=== PATIENT | female | born 1950 | race African-American/Black ===

== ENCOUNTER 2017-08-08 10:18 | Outpatient (CLI) | payer MEDICARE ==
--- NOTE | 2017-08-08 15:50 | PET ---
PET CT FROM SKULL TO MID THIGH: INDICATION: Right hilar small cell lung cancer. RADIOPHARMACEUTICAL: 11.36 mCi of [id number] IV. TECHNIQUE: PET CT images were obtained from the skull to mid thigh. CT images were obtained for attenuation co rrection purposes only. Comparisons are made with the prior CT chest, abdomen, and pelvis dated 06/06 01/20. FINDINGS: The biodistribution for the examination appears acceptable. HEAD AND NECK: No hypermetabolic head and neck lesion is demonstrated. There is some mild activity seen within the aerodigestive tract which is likely physiologic. CHEST: The hypermetabolic right hilar mass is slightly decreased in prominence measuring approximately 5.2 x 4.4 cm where it previously measured 6 x 5.1 cm. There is improved aeration of the right lower lob e. There is still subsegmental atelectasis within portions of the right lower lobe. The peak uptak e associated with the right hilar mass is 8.21 where the mean uptake is 6.46. There is a hypermetabolic left axillary lymph node peak uptake at 3.47, mean uptake of 1.88. There are additional hypermetabolic lymph nodes seen within the left axillary region. There is a hypermet abolic right paratracheal lymph node with a peak uptake of 3.08 and a mean uptake of 2.64. There is a small calcified granuloma within the left upper lobe. There is some mild volume loss within the right middle lobe. ABDOMEN AND PELVIS: No hypermetabolic mass or lymphadenopathy is evident. There is some mild diffuse hypermetabolic act ivity involving the sigmoid colon with diffuse scattered colonic diverticula. The mean peak uptake is 4.45 with a mean uptake of 3.49 associated with the sigmoid colon. SKIN AND OSSEOUS STRUCTUERS: No skin or osseous hypermetabolic lesion is identified. IMPRESSION: Abnormal PET scan. 1. Hypermetabolic right hilar mass with associated obstructive atelectasis involving the right lowe r lobe and portions of the right middle lobe. The mass does appear less prominent than on the jose rison CT dated 06/16/17 likely reflecting sequelae of response to therapy. 2. Hypermetabolic right paratracheal and left axillary lymph nodes suspicious for malignant spread of disease to the lymph nodes. 3. No evidence of hypermetabolic metastatic disease within the abdomen and pelvis, head and neck re gion, or skin or osseous structures. 4. Hypermetabolic activity involving the sigmoid colon with scattered diverticula suspicious for mi ld sigmoid diverticulitis. Recommend correlation with clinical exam. POS: [facility]
== END 2017-08-08 10:19 | disposition home or self-care (01) ==
LOC: PET 10:18
PROVIDERS: ATTEND Internal Medicine Hematology & Oncology
DX: C34.31 Malignant neoplasm of lower lobe, right bronchus or lung (principal); J98.11 Atelectasis; K57.30 Diverticulosis of large intestine without perforation or abscess without bleeding
CPT/HCPCS: 78815; A9552

== ENCOUNTER 2017-08-20 09:40 | Inpatient (IN) | payer MEDICARE ==
[2017-08-20] MEDS ORDERED: Ondansetron HCl/PF 4 MG/2 ML Vial ONE (10:20)
[2017-08-20 10:36] LABS: #Basophils 0.1 thou/uL (0.0-0.2); #Lymphocytes 2.2 thou/uL (1.20-3.40); #Neutrophils 7.1 thou/uL (1.40-6.50); %Basophils 1.1 % (0.0-1.0); %Eosinophils 0.2 % (0.0-10.0); %Monocytes 9.8 % (0.0-10.0); Hematocrit 44.3 % (36.0-47.0); Mean Platelet Volume 5.9 fL (7.4-10.4); Red Blood Cell (RBC) Count 4.79 mill/uL (4.20-5.40); White Blood Cell (WBC) Count 10.5 thou/uL (4.8-10.8)
[2017-08-20 10:56] LABS: Lactic Acid - Sepsis 1.7 mmol/L (0.5-2.2)
[2017-08-20 11:04] LABS: ALT (SGPT) 20 U/L (8-55); AST (SGOT) 52 U/L (5-34); Alkaline Phosphatase 93 U/L (40-150); Anion Gap 19 mmol/L (10-20); BUN (Urea Nitrogen) 14 mg/dL (9.8-20.1); Bilirubin, Total 0.6 mg/dL (0.2-1.2); Calc. Creatinine Clearance 0 mL/min (70-130); Calcium 9.2 mg/dL (7.8-10.44); Carbon Dioxide 20 mmol/L (23-31); Chloride 94 mmol/L (98-107); Estimated GFR-MDRD Greater than 90; Lipase Less than 4 U/L (8-78); Protein, Total 8.9 g/dL (6.0-8.3)
[2017-08-20] MEDS ORDERED: Sodium Bicarb 50 MEQ/50 ML Abboject 8.4% SYRINGE ONE ×3 (11:18→11:22)
[2017-08-20] MEDS ORDERED: Insulin Regular 300 UNITS/3 ML VIAL ONE (11:18)
[2017-08-20] MEDS ORDERED: Calcium Chloride 1 GM/10 ML Abboject SYRINGE ONE (11:18)
[2017-08-20] MEDS ORDERED: Dextrose 50% Abboject 50 ML SYRINGE ONE ×2 (11:18→11:20)
[2017-08-20 11:26] LABS: Bilirubin Negative (Negative); Blood, Urine Small (Negative); Glucose, Urine (Dipstick) Negative (Negative); Ketone, Urine Negative (Negative); Nitrite Negative (Negative); Protein, Urine (Dipstick) Negative (Neg-Trace); Urobilinogen 0.2 mg/dL (0.2-1.0)
--- NOTE | 2017-08-20 11:28 | RAD ---
SINGLE VIEW OF CHEST: Date: 08/20/17 COMPARISON: 06/17/17. HISTORY: Left upper quadrant abdominal pain. FINDINGS: Single view of the chest shows a normal sized cardiomediastinal silhouette. There is no evidence of consolidation, mass, or pleural effusion. The bones are unremarkable. IMPRESSION: No evidence of acute cardiopulmonary disease. POS: [facility]
[2017-08-20 11:33] LABS: Bacteria/HPF 2+ HPF (None Seen); WBC/HPF 0-3 HPF (0-3)
[2017-08-20 11:34] LABS: Hyaline Casts/LPF NONE SEEN LPF (0-3 Hyaline)
--- NOTE | 2017-08-20 12:49 | CT ---
CT OF THE ABDOMEN AND PELVIS WITH CONTRAST: Date: 08/20/17 COMPARISON: 06/17/17. HISTORY: Left upper quadrant abdominal pain. Patient has lung cancer and receives chemotherapy. TECHNIQUE: Multiple contiguous axial images were obtained in a CT of the abdomen and pelvis with contrast. Anastasiia nal reformats were performed. FINDINGS: There are tiny, subcentimeter, hypodensities in the liver which are too small to definitely characte rize. These could represent small cysts, metastatic lesions, or areas of biliary dilatation. The gallbladder, kidneys, adrenal glands, spleen, and pancreas are unremarkable. No free air, free f luid, or stranding changes are seen in the abdomen or pelvis. There are scattered diverticula in the colon. The small bowel is unremarkable. The reproductive orga ns are unremarkable. No abdominal or pelvic lymphadenopathy seen. Degenerative changes are seen in the spine. The abdomin al wall soft tissues are unremarkable. There is a partially visualized right hilar mass measuring 3.0 cm in size. Collapse of the right low er lobe is seen, but slightly improved compared to the prior exam. IMPRESSION: 1. No evidence of acute intra-abdominal/pelvic abnormality. 2. Nonspecific tiny hypodense lesions in the liver. These could represent cysts, metastatic lesions , or areas of biliary dilatation. 3. Diverticulosis. 4. Right hilar mass with collapse of a portion of the right lower lobe. POS: [facility]
--- NOTE | 2017-08-20 14:36 | PDOC.EVN ---
Event Note - Event Note Event Note: H&P: 586255 Symptomatic Hyponatremia (likely 2/2 SiADH in the setting of lung CA) * 1L fluid restriction * check labs for SIADH * check Na in AM LLQ pain with N/V * CT a/p: no acute issues * likely chemo side-effect * treat symptomatically Lung Ca dx'ed in June 2017 * CT a/p demostrated right hilar mass with RLL collapse; also with hypodense liver lesions (?mets) * consult pulmonology * consult oncology * check blood cxs * check prolactin * check labs in AM Possible UTI * check urine cx DM2 * SSI * f/u accu checks Admit to inpt.
[2017-08-20] MEDS ORDERED: Loperamide HCl 2 MG CAP PO PRN (14:37)
[2017-08-20] MEDS ORDERED: Acetaminophen 325 MG TAB PO PRN (14:37)
[2017-08-20] MEDS ORDERED: Milk Of Magnesia 30 ML UDCUP PO PRN (14:37)
[2017-08-20] MEDS ORDERED: Ondansetron HCl/PF 4 MG/2 ML Vial IVP PRN (14:37)
[2017-08-20] MEDS ORDERED: HYDROcodone/Acetaminophen 5/325 mg Tablet PO PRN (14:37)
[2017-08-20 14:48] VITALS: BMI 26.4
[2017-08-20] MEDS: Nicotine 21 MG PATCH TD SCH (15:38)
--- NOTE | 2017-08-20 19:11 | HP ---
DATE OF ADMISSION: 08/20/2017 at 2:27 p.m. CHIEF COMPLAINT: Left lower quadrant pain. HISTORY OF PRESENT ILLNESS: This is a 66-year-old female who was recently diagnosed with right lowe r lobe lung cancer in 06/2017 and since been receiving chemotherapy, her last series of sessions was this Monday, Monday, and . The following day which was Monday, she noticed the develop ment of her nausea, vomiting, and left lower quadrant pain. She denied any fevers, chills, chest pa in or shortness of breath. She also denied any changes in her urinary habits. REVIEW OF SYSTEMS: A 14-point review of systems is negative except as otherwise indicated above in the HPI. PAST MEDICAL HISTORY: 1. History of TIA which was 6 years ago. 2. Hypertension. 3. Diabetes mellitus. 4. Recently diagnosed right lower lobe lung cancer in 06/2017, status post last chemotherapy sessio n on , 08/17/2017. PAST SURGICAL HISTORY: Appendectomy. FAMILY HISTORY: Reviewed and noncontributory to the presenting illness. SOCIAL HISTORY: The patient does have a history of smoking. She denies any alcohol or illicit drug use. ALLERGIES AND MEDICATIONS: Reviewed and reconciled, please refer to chart for details. PHYSICAL EXAMINATION: VITAL SIGNS: Reviewed, please refer to chart for details. GENERAL: The patient was sitting comfortably in a wheelchair when I entered the room in no acute di stress. HEENT: Normocephalic, atraumatic. NECK: Supple, no rigidity. LYMPH NODES: No cervical or supraclavicular lymphadenopathy. CARDIOVASCULAR: S1 and S2 audible with regular rate and rhythm. LUNGS: Notable for right-sided rhonchi in upper lobes and decreased breath sounds in the bases, rig ht greater than left, no wheezing apparent. ABDOMEN: Soft, nontender, positive bowel sounds. No guarding, rebound or rigidity. GENITOURINARY: No CVA tenderness bilaterally. No suprapubic tenderness either. MUSCULOSKELETAL: No calf tenderness bilaterally. EXTREMITIES: No clubbing, cyanosis or edema of the extremities. PSYCHIATRIC: Appropriate, and cooperative. NEUROLOGIC: Alert and oriented x3, answering questions appropriately with judgment intact. SKIN: Warm, dry with moist mucous membranes. LABORATORY IMAGING: Reviewed. Please refer to chart for details. ASSESSMENT AND PLAN: This is a 66-year-old female presenting with left lower quadrant pain, nausea and vomiting. 1. Symptomatic hyponatremia with left lower quadrant pain. CT of the abdomen and pelvis did reveal hypodense lesions in the liver which is suspicious for metastatic disease. We will consult Oncolog y. Chest x-ray was negative; however, the CT of the abdomen and pelvis did reveal a right hilar mas s with collapse of the portion of the right lower lobe. I will therefore also consult Pulmonology. I do appreciate the input. It does not appear that the patient has an infection at this time, but we will check urine and blood cultures and also check a prolactin level. With regards to the hypona tremia, we will order labs to assess for syndrome of inappropriate antidiuretic hormone secretion in the setting of lung cancer. We will also apply a fluid restriction of 1 liter a day and recheck so dium level in the morning. 2. History of right lower lobe lung cancer diagnosed in 06/2017 per the patient. Last chemotherapy session was , 08/17/2017. Her symptoms of nausea and vomiting may likely be related to her chemotherapy sessions as her symptoms began on Monday, which was the day after her chemo ended. We will treat symptomatically for now and again Oncology has been consulted as above. 3. Probable urinary tract infection. We will check urine culture and hold off on antibiotics for n ow. 4. Diabetes mellitus, start sliding scale insulin. Follow up Accu-Cheks before meals and at bedtim e. Admit to inpatient.
[2017-08-20] MEDS: Famotidine/PF 20 mg/2ml Vial SLOW IVP SCH (20:02)
[2017-08-20] MEDS ORDERED: Calcium Carbonate 500 MG ChewTAB PO PRN (20:23)
[2017-08-20] MEDS ORDERED: Mag-Al 1200 mg/1200 mg/30 ML UDCUP PO PRN (20:23)
[2017-08-20] MEDS: Zolpidem Tartrate 5 MG TAB PO PRN (20:27)
[2017-08-20] MEDS ORDERED: FLU VACC TS2017-18 (>65YR) 0.5 ML SYRINGE IM ONE (21:00)
[2017-08-21 05:52] LABS: #Basophils 0.1 thou/uL (0.0-0.2); #Lymphocytes 2.5 thou/uL (1.20-3.40); #Monocytes 0.9 thou/uL (0.11-0.59); #Neutrophils 4.5 thou/uL (1.40-6.50); %Basophils 0.7 % (0.0-1.0); %Eosinophils 0.4 % (0.0-10.0); %Lymphocytes 31.5 % (21.0-51.0); %Monocytes 11.1 % (0.0-10.0); Hematocrit 47.1 % (36.0-47.0); Red Blood Cell (RBC) Count 5.09 mill/uL (4.20-5.40)
[2017-08-21 06:20] LABS: Anion Gap 12 mmol/L (10-20); BUN (Urea Nitrogen) 16 mg/dL (9.8-20.1); Calc. Creatinine Clearance 98 mL/min (70-130); Calcium 9.4 mg/dL (7.8-10.44); Carbon Dioxide 25 mmol/L (23-31); Chloride 99 mmol/L (98-107); Estimated GFR-MDRD Greater than 90; Magnesium 2.2 mg/dL (1.6-2.6)
[2017-08-21] MEDS: Famotidine/PF 20 mg/2ml Vial SLOW IVP SCH (08:32)
[2017-08-21] MEDS: Nicotine 21 MG PATCH TD SCH (08:37)
--- NOTE | 2017-08-21 11:46 | PDOC.PN ---
- Subjective Encounter Start Date: 08/21/17 Encounter Start Time: 08:00 -: old records requested/rev Patient seen and examined. No new complaints. No overnight events - Objective MAR Reviewed: Yes Vital Signs & Weight: Vital Signs (12 hours) Temp Pulse Resp BP BP Pulse Ox 08/21/17 11:14 97.9 F 89 16 93/60 99 08/21/17 08:00 98.3 F 79 16 99 08/21/17 07:15 98.3 F 79 16 124/76 99 08/21/17 04:00 98.3 F 73 18 99/65 95 Weight Weight 158 lb 11.725 oz I&O: 08/20/17 08/21/17 08/22/17 06:59 06:59 06:59 Intake Total 240 Balance 240 Result Diagrams: 08/21/17 04:51 08/21/17 04:51 Phys Exam - Physical Examination Constitutional: NAD HEENT: PERRLA, moist MMs, sclera anicteric Neck: no JVD, supple Respiratory: no wheezing, no rales, no rhonchi Cardiovascular: RRR, no significant murmur, no rub Gastrointestinal: soft, non-tender, no distention, positive bowel sounds Musculoskeletal: no edema, pulses present Neurological: non-focal, normal sensation, moves all 4 limbs Psychiatric: normal affect, A&O x 3 Skin: no rash, normal turgor Dx/Plan (1) Hyponatremia Code(s): E87.1 - HYPO-OSMOLALITY AND HYPONATREMIA Status: Acute Comment: likely due to siadh (2) Diverticulosis Code(s): K57.90 - DVRTCLOS OF INTEST, PART UNSP, W/O PERF OR ABSCESS W/O BLEED Status: Chronic (3) Small cell lung cancer Code(s): C34.90 - MALIGNANT NEOPLASM OF UNSP PART OF UNSP BRONCHUS OR LUNG Status: Chronic (4) Tobacco abuse Code(s): Z72.0 - TOBACCO USE Status: Chronic - Plan cont current plan of care * sodium is improving * she is due for mediport on monday * advised free water restriction * medication reviewed as below * symptomatic treatment. Review of Systems - Review of Systems ENT: negative: Ear Pain, Ear Discharge, Nose Pain, Nose Discharge, Nose Congestion, Mouth Pain, Mouth Swelling, Throat Pain, Throat Swelling, Other Respiratory: negative: Cough, Dry, Shortness of Breath, Hemoptysis, SOB with Excertion, Pleuritic Pain, Sputum, Wheezing Cardiovascular: negative: Chest Pain, Palpitations, Orthopnea, Paroxysmal Noc. Dyspnea, Edema, Light Headedness, Other Gastrointestinal: negative: Nausea, Vomiting, Abdominal Pain, Diarrhea, Constipation, Melena, Hematochezia, Other Genitourinary: negative: Dysuria, Frequency, Incontinence, Hematuria, Retention , Other Musculoskeletal: negative: Neck Pain, Shoulder Pain, Arm Pain, Back Pain, Hand Pain, Leg Pain, Foot Pain, Other Skin: negative: Rash, Lesions, Driss, Bruising, Other - Medications/Allergies Allergies/Adverse Reactions: Allergies Allergy/AdvReac Type Severity Reaction Status Date / Time No Known Drug Allergies Allergy Verified 06/17/17 16:44 Medications: Current Medications Acetaminophen (Tylenol) 650 mg PO Q4H PRN PRN Reason: Headache/Fever or Pain Hydrocodone Bitart/Acetaminophen ([place] 5/325) 1 tab PO Q4H PRN PRN Reason: Moderate Pain (4-6) Al Hydroxide/Mg Hydroxide (Maalox) 20 ml PO Q6H PRN PRN Reason: INDIGESTION Calcium Carbonate (Tums) 1,000 mg PO Q4H PRN PRN Reason: INDIGESTION Famotidine (Pepcid) 20 mg SLOW IVP Q12HR [facility] Last Admin: 08/21/17 08:32 Dose: 20 mg Lactulose (Lactulose) 20 gm PO DAILYPRN PRN PRN Reason: Constipation Loperamide HCl (Imodium) 2 mg PO PRN PRN PRN Reason: Diarrhea/Loose Stools Magnesium Hydroxide (Milk Of Magnesium) 30 ml PO DAILYPRN PRN PRN Reason: Constipation Nicotine (Nicoderm Patch) 21 mg TD Q24HR [facility] Last Admin: 08/21/17 08:37 Dose: 21 mg Ondansetron HCl (Zofran) 4 mg IVP Q6H PRN PRN Reason: Nausea/Vomiting Last Admin: 08/20/17 16:44 Dose: 4 mg Zolpidem Tartrate (Ambien) 5 mg PO HSPRN PRN PRN Reason: Insomnia Last Admin: 08/20/17 20:27 Dose: 5 mg
--- NOTE | 2017-08-21 14:31 | CON ---
DATE OF CONSULTATION: 08/21/2017 REASON FOR CONSULTATION: Lung cancer. HISTORY OF PRESENT ILLNESS: Ms. Lozada is a 66-year-old female who was recently diagnosed with small cell carcinoma of the lung. She has a right hilar malignancy with left axillary metastasis. She h as a history of smoking 1-2 packs per day for over 40 years. She recently completed her second cycl e of carboplatin and [employer]-16 on 08/17/2017. On 08/20/2017, she presented to the emergency ro om with complaints of abdominal pain, burning in her chest. She was having some diarrhea. Chemistr y revealed hyponatremia, so she was admitted for treatment. She had a CT scan of the abdomen and pe lvis which showed nonspecific hypodense lesions. Her PET scan dated 08/08/2017 showed no increased uptake in the liver, so these are likely cysts. Over the course of the last 24 hours, she has impro suleman and denies any chest pain or shortness of breath. She has had a good bowel movement. Denies an y heartburn or abdominal pain. She is up and ambulating in the room and just completed her lunch. PAST MEDICAL HISTORY: 1. Metastatic small cell carcinoma. 2. Tobacco abuse. 3. High blood pressure. 4. High cholesterol. 5. History of stroke. 6. Blood clots. PAST SURGICAL HISTORY: Appendectomy. ALLERGIES: No known drug allergies. HOME MEDICATIONS: 1. Ambien 5 mg p.r.n. at bedtime. 2. Nicotine patch. 3. Compazine and Zofran p.r.n. FAMILY HISTORY: She had a sibling with lung with brain mets. SOCIAL HISTORY: , has 2 children. Quit smoking at diagnosis. No alcohol or illicit drug u se. REVIEW OF SYSTEMS: Twelve-point review of systems is negative except for noted on HPI. PHYSICAL EXAMINATION: VITAL SIGNS: Temperature is 97.9, pulse is 89, respiratory rate 16, BP is 93/60. She is 99% on robb m air. GENERAL: Well-developed, well-nourished female in no acute distress. HEENT: Normocephalic, atraumatic. Pupils equal and reactive to light. NECK: Supple. CARDIOVASCULAR: Regular rate and rhythm. LUNGS: Clear. ABDOMEN: Soft, nontender, bowel sounds are positive. EXTREMITIES: No clubbing, cyanosis or edema. SKIN: No rash. HEMATOLOGIC: No petechia or purpura. NEUROLOGIC: Nonfocal. PSYCHIATRIC: The patient is alert and oriented and answers appropriately. PERTINENT LABORATORY DATA AND X-RAYS: Current WBCs are 8.0, hemoglobin 15.7, hematocrit 47.1, plate let count 536,000, 56% neutrophils, 31% lymphocytes. Sodium is 132, potassium 4.4, chloride 99, CO2 is 25, BUN is 16, creatinine 0.64. Lactic acid 1.7, calcium 9.4, magnesium 2.2, total bilirubin is 0.6, AST is 52, ALT is 20, alkaline phosphatase is 93. Serum total protein is 8.9, albumin 3.9, gl obulin 5. Urine showed 2+ bacteria. Urine culture is negative. Radiology per HPI. ASSESSMENT PLAN: 1. Metastatic small cell carcinoma, on chemotherapy. 2. Left upper quadrant abdominal pain, which has resolved. DISCUSSION: The patient denies any complaints at this time. She is taking p.o. and has had a bowel movement. She has a MediPort scheduled for Monday as an outpatient and has a followup appointme nt with Dr. Cyr on Monday afternoon. No further inpatient recommendations at this time.
[2017-08-21] MEDS: Famotidine 20 MG TAB PO SCH (20:47)
[2017-08-21] MEDS: Zolpidem Tartrate 5 MG TAB PO PRN (20:47)
--- NOTE | 2017-08-21 20:57 | PRG ---
DATE OF SERVICE: 08/21/2017 SUBJECTIVE: A 66-year-old female with metastatic lung cancer. She has seen Dr. Lo, but not re cently. She was followed by Dr. Cyr. She was admitted to the hospital apparently with symptoms of vague epigastric discomfort and abdomin al pain. She said she has not had a bowel movement for several days. She was found to have a sodium of 124; sodium today is 132. She is feeling much better after she had a bowel movement. No fever, chills, no sweats. PAST MEDICAL HISTORY: TIA. PAST SURGICAL HISTORY: Appendix, bronchoscopy. CURRENT MEDICATIONS: Nicotine, lactulose, Flagyl. REVIEW OF SYSTEMS: Otherwise, unremarkable. PHYSICAL EXAMINATION: VITAL SIGNS: Blood pressure 93/60, sats 99%, respiration 16. CHEST: Reveals decreased breath sounds without any wheezing. CARDIAC: Normal S1, S2. No gallops. ABDOMEN: Soft. No masses. LABORATORY DATA: White count 8000, H and H 15 and 47, platelet count is normal. Electrolytes are n ormal. Sodium was up to 132. Cortisol is 20. TSH is 1.42. IMPRESSION: 1. Hyponatremia. Pretty much resolved. Sodium is 132. 2. Abdominal pain, probably secondary to constipation. 3. Metastatic small cell cancer, on chemotherapy. PLAN: At this stage, she probably could be discharged home tomorrow, followed by Dr. Lo on an outpatient basis.
[2017-08-22 05:40] LABS: #Lymphocytes 2.4 thou/uL (1.20-3.40); #Monocytes 0.8 thou/uL (0.11-0.59); #Neutrophils 3.9 thou/uL (1.40-6.50); %Basophils 0.6 % (0.0-1.0); %Eosinophils 0.4 % (0.0-10.0); %Lymphocytes 33.8 % (21.0-51.0); %Monocytes 11.3 % (0.0-10.0); Hematocrit 45.2 % (36.0-47.0); Mean Platelet Volume 6.1 fL (7.4-10.4); White Blood Cell (WBC) Count 7.2 thou/uL (4.8-10.8)
[2017-08-22 05:52] LABS: Anion Gap 13 mmol/L (10-20); BUN (Urea Nitrogen) 21 mg/dL (9.8-20.1); Calc. Creatinine Clearance 100 mL/min (70-130); Calcium 8.7 mg/dL (7.8-10.44); Carbon Dioxide 21 mmol/L (23-31); Chloride 103 mmol/L (98-107); Estimated GFR-MDRD Greater than 90; Magnesium 2.2 mg/dL (1.6-2.6)
[2017-08-22 09:20] VITALS: BP 106/74; TEMP 97.6
[2017-08-22] MEDS: Famotidine 20 MG TAB PO SCH (09:49)
[2017-08-22] MEDS: Nicotine 21 MG PATCH TD SCH (09:50)
--- NOTE | 2017-08-22 10:30 | DIS ---
DATE OF ADMISSION: 08/20/2017 DATE OF DISCHARGE: 08/22/2017 PRIMARY CARE PHYSICIAN: [facility]. DISCHARGE DISPOSITION: Home. PRIMARY DISCHARGE DIAGNOSIS: Hyponatremia. SECONDARY DISCHARGE DIAGNOSES: Diverticulosis, small cell lung cancer, tobacco abuse disorder, and gastroesophageal reflux disease. PRIMARY PROCEDURE/OPERATION: None. RADIOLOGICAL INVESTIGATION: Abdomen and pelvis CT scan was unremarkable. Chest x-ray with no new a cute finding. SIGNIFICANT LABORATORY DATA: CBC: WBC 7.2, hemoglobin 14.8, platelets 450. Sodium 132, potassium 4.5, BUN 21, and creatinine 0.63. Cortisol of 20.5. Prolactin 4.83, TSH 1.42, AST 52, ALT 20, and alkaline phosphatase 93. Urinalysis unremarkable. Blood culture and urine culture negative. DISCHARGE MEDICATIONS: Pepcid 20 mg p.o. b.i.d., lactulose 20 grams p.o. daily p.r.n. for constipat ion. CONTRAINDICATIONS: None. CODE STATUS: FULL CODE. INPATIENT CONSULTANTS: Dr. Cristopher Hammond was consulted while in hospital. Dr. Arturo Banda was consult ed while in hospital. TEST RESULTS PENDING ON DISCHARGE: None. ALLERGIES: No known drug allergy. DISCHARGE PLAN: Post hospital, the patient will follow up with Oncology Clinic. HOSPITAL COURSE: A 66-year-old female who was admitted by Dr. Charles Salas. Please see his H\T\P for further details. The patient was admitted for hyponatremia. We did hyponatremia workup in hosp ital and we found that she has small cell lung cancer and that is why most likely her hyponatremia i s related with SIADH. We gave her IV fluid trial and we also restricted free water intake. Patient has also poor p.o. intake and that is why we advised about high protein diet. During this admissio n, her sodium improved from 124-132. The patient is doing very well. The patient is planned for to [place] MediPort placement. Patient also has appointment with Oncology Clinic for chemotherapy decis ion. This patient was also drinking free water at home too much and that is why we provided necessary pat ient education about fluid restriction. The patient is seen and examined at bedside today. PHYSICAL EXAMINATION: VITAL SIGNS: Currently, temperature 97.6, pulse 81, respiratory rate 16, saturation 95%, blood pres sure 106/74. Weight 158 pounds. GENERAL: The patient is alert, awake, no acute distress. HEAD: Normocephalic, atraumatic. LUNGS: Clear. CARDIAC: S1 and S2 regular without any murmur. ABDOMEN: Soft and benign. EXTREMITIES: No edema. NEUROLOGIC: Nonfocal examination. The patient is medically stable for discharge today.
== END 2017-08-22 11:58 | disposition home or self-care (01) | DRG 644 ==
LOC: ERS 09:40 → T4-A 13:12
PROVIDERS: ADMIT Hospitalist; ATTEND Hospitalist
DX: E22.2 Syndrome of inappropriate secretion of antidiuretic hormone (principal); C77.3 Secondary and unspecified malignant neoplasm of axilla and upper limb lymph nodes; C34.01 Malignant neoplasm of right main bronchus; K57.90 Diverticulosis of intestine, part unspecified, without perforation or abscess without bleeding; K59.00 Constipation, unspecified; Z87.891 Personal history of nicotine dependence; I10 Essential (primary) hypertension; E11.9 Type 2 diabetes mellitus without complications; Z23 Encounter for immunization
CPT/HCPCS: 36415; 71010; 74177; 80048; 80053; 81003; 81015; 82533; 82570; 83605; 83690; 83735; 83930; 83935; 84146; 84300; 84443; 85025; 87040; 87086; 93005; 96361; 96374; 96375; G8978-GP-CK; G8979-GP-CK; G8980-GP-CK; G8987-GO-CH; G8988-GO-CH; G8989-GO-CH; J1815; J2405; S0028

== ENCOUNTER 2017-08-29 05:56 | Day surgery (SDC) | payer MEDICARE ==
[2017-08-28 16:29] VITALS: BMI 24.7
[2017-08-29] MEDS ORDERED: CEFAZOLIN/Water 2 GM/20 ML SYRINGE ONE (06:50)
[2017-08-29] MEDS ORDERED: Bupivacaine 0.25% HCL 30 ML VIAL ONE (06:56)
[2017-08-29] MEDS ORDERED: Lidocaine 2% w/Epinephrine 1:200K 20 ML VIAL ONE (06:56)
[2017-08-29] MEDS ORDERED: Fentanyl 100 MCG/2 ML VIAL ONE (07:16)
[2017-08-29] MEDS ORDERED: Diprivan 20 ML ONE (07:16)
[2017-08-29] MEDS ORDERED: Midazolam HCl 2 mg/2 ml Vial ONE (07:16)
[2017-08-29] MEDS ORDERED: Ondansetron HCl/PF 4 MG/2 ML Vial ONE (07:43)
[2017-08-29] MEDS ORDERED: Lidocaine 1% PF 5 ML VIAL ONE (07:43)
--- NOTE | 2017-08-29 08:55 | OP ---
PREOPERATIVE DIAGNOSIS: Lung cancer. POSTOPERATIVE DIAGNOSIS: Lung cancer. PROCEDURE: Tunneled central line subcutaneous port (MediPort), CT injectable. SURGEON: Kyle Bui M.D. ANESTHESIA: TIVA, local. ESTIMATED BLOOD LOSS: Minimal. COMPLICATIONS: None. FINDINGS: Tip of the catheter was at the atriocaval junction. TECHNIQUE: The patient was taken to the operating room and placed supine on the table. After sedat ion was obtained, bilateral neck and chest were prepped and draped in a sterile fashion. Local anes thetic infiltrated over the right internal jugular vein. Internal jugular vein was cannulated using a 22-gauge finder needle followed by a Seldinger needle and a wire was passed into the superior kelsy a cava under fluoroscopic guidance. A separate 4 cm incision was made in the right upper chest and the subcutaneous pocket made below the lower incision. Tubing for the MediPort tunneled from the in ferior to the superior incision. Introducer sheath was placed over the wire under fluoroscopic guid ance introduced. The dilator and wire are removed. The end of the catheter was threaded into the s taco as the sheath is peeled away. The tip of catheter is at the atriocaval junction. MediPort tu german cut to fit the MediPort at the lower incision, connected to the MediPort which was sewn to the chest wall in the subcutaneous pocket using Prolene. The MediPort flushes and draws blood without d ifficulty. It is flushed with heparin flush. The wounds were irrigated and closed using 3-0 Monocr yl, 4-0 Monocryl, and Dermabond. The patient was en route to recovery in stable condition. All ins trument counts, needle counts, and lap counts were correct.
--- NOTE | 2017-08-29 09:04 | RAD ---
AP CHEST: Indication: Status post Mediport placement. Comparison: 08-20-17 IMPRESSION: There is a new right IJ chest wall port in place. The tip of the catheter is seen in the cavoatrial junction. No pneumothorax is evident. The remainder of the examination is unchanged from the compari son. POS: [facility]
== END 2017-08-29 09:30 | disposition home or self-care (01) ==
LOC: SDC 05:56
PROVIDERS: ATTEND Surgery
PROC: 05HM33Z Insertion of Infusion Device into Right Internal Jugular Vein, Percutaneous Approach (ICD-10-PCS; principal; 2017-08-29)
DX: C34.90 Malignant neoplasm of unspecified part of unspecified bronchus or lung (principal); J45.909 Unspecified asthma, uncomplicated; F17.200 Nicotine dependence, unspecified, uncomplicated; Z90.49 Acquired absence of other specified parts of digestive tract; Z98.890 Other specified postprocedural states
CPT/HCPCS: 36561; 71010; C1788; J1642; J2001; J2250; J2405; J2704; J3010; S0020

== ENCOUNTER 2017-10-16 09:04 | Outpatient (CLI) | payer MEDICARE ==
--- NOTE | 2017-10-16 13:05 | CT ---
CT CHEST AND ABDOMEN AND PELVIS WITH IV CONTRAST: Date: 10/16/17 Multiple axial tomograms obtained through chest, abdomen, and pelvis with IV enhancement. Oral contra st was administered. HISTORY: Malignant neoplasm of the right lung. Follow-up. Post chemo. Comparison made to abdominopelvic CT of 08/20/[address] of 06/18/17. FINDINGS: CT CHEST: There has been significant improvement in the right lung mass when compared to the 06/18/17 exam. The residual right hilar mass today measures approximately 2.6 cm AP dimension. This also is slightly sm aller when compared to the images through the mid and lower chest on 08/20/17. Images through the low er chest on 08/20/17 revealed a significant mass density extending into the right lower lobe from the right infrahilar region. This mass is significantly decreased in size today with some residual right infrahilar mass today measuring 2.1 cm. Previous measurements of this right infrahilar mass on 08/20 recorded at approximately 4.0 cm. There continues to be some mild posterior right lower lobe atel ectatic change. On the 06/18/17 exam, an enlarged left axillary lymph node was noted measuring up to 2.6 cm. That lym ph node has significantly regressed in size today with residual node in this region subcentimeter. Prior exam also described several left subpectoral lymph nodes along the anterior left chest wall. Th sam subpectoral lymph nodes have also regressed. There are 2-3 subcentimeter subpectoral lymph nodes on the left seen today. IMPRESSION: 1. Significant regression of the right hilar mass and right infrahilar mass when compared to prior e xam. There has also been regression of the left axillary adenopathy and left subpectoral adenopathy w hen compared to prior exam. 2. Some residual right lung base atelectasis. CT ABDOMEN AND PELVIS: Liver, spleen, and pancreas appear unremarkable. Adrenal glands and kidneys remain unremarkable. Tiny renal cystic lesions are stable. Bowel loops unremarkable. Diverticulosis of left colon again noted. Uterus and adnexa unremarkable. Bladder is mildly distended. No adenopathy. No acute interval change . Nonspecific periaortic lymph nodes are stable. IMPRESSION: Stable CT abdomen and pelvis with no evidence of intra-abdominal adenopathy identified. POS: [facility]
[2017-10-16] MEDS ORDERED: ISOVUE-370 76%-LOCM 1 ML ONE (17:19)
== END 2017-10-16 09:05 | disposition home or self-care (01) ==
LOC: CT 09:04
PROVIDERS: ATTEND Internal Medicine Hematology & Oncology
DX: C34.31 Malignant neoplasm of lower lobe, right bronchus or lung (principal); R59.0 Localized enlarged lymph nodes; R91.8 Other nonspecific abnormal finding of lung field; J98.11 Atelectasis
CPT/HCPCS: 71260; 74177

== ENCOUNTER 2017-11-15 11:12 | Outpatient (CLI) | payer MEDICARE ==
[2017-11-15 12:16] LABS: Estimated GFR-MDRD - POC Greater than 90
--- NOTE | 2017-11-15 14:51 | MRI ---
BRAIN MRI WITH AND WITHOUT CONTRAST: INDICATION: History of small-cell lung malignancy. Evaluate for brain metastases. COMPARISON: Reference is made to 07/24/[address] FINDINGS: There is extensive white matter signal alteration without acute territorial infarction, mass effect, or midline shift. There is mild pontine gliosis. The ventricular system is normal in size. No evid ence of intracranial hemorrhage. No pathologic intraaxial enhancement. The skull base flow voids ar e maintained. There is mild mucosal thickening within the paranasal sinuses. Evidence of remote lac unar infarctions within the bilateral cerebellar hemispheres. IMPRESSION: 1. No intracranial metastatic disease. 2. Findings most consistent with mild to moderate chronic microvascular ischemic disease. 3. 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 POS: [facility]
[2017-11-15] MEDS ORDERED: Gadobenate Dimeglumine 529 MG/1 ML (20ML VIAL) ONE (16:49)
== END 2017-11-15 11:13 | disposition home or self-care (01) ==
LOC: MRI 11:12
PROVIDERS: ATTEND Radiology Radiation Oncology
DX: C34.31 Malignant neoplasm of lower lobe, right bronchus or lung (principal)
CPT/HCPCS: 70553; A9579

== ENCOUNTER 2018-02-01 09:34 | Outpatient (CLI) | payer MEDICARE ==
--- NOTE | 2018-02-01 12:29 | CT ---
CT CHEST WITH CONTRAST CT ABDOMEN WITH CONTRAST CT PELVIS WITH CONTRAST: Date: 02/01/18 HISTORY: C34.41, malignant neoplasm of lower lobe. COMPARISON: CT chest, abdomen, and pelvis dated 10/16/17. FINDINGS: The right perihilar mass is decreased in volume. Using the same imaging plans as prior examination, t he greatest AP dimension is approximately 2.0 cm, previously 2.6 cm. The postobstructive pneumonitis in the right lower lobe is improved. No new suspicious pulmonary nodules. No pneumothorax. No large effusion. Left axillary and retropectoral lymph nodes are markedly worsened from the comparison examination. Le ft retropectoral lymph node measures up to 1.7 cm, previously 7.0 mm in short axis. Enlarging left ax illary lymph nodes measure up to 1.6 cm, previously not even visualized. There is central hypodensity within the lymph node suggesting necrosis. Left supraclavicular adenopathy is present, measuring up to 1.7 cm. No significant right supraclavicular adenopathy. No hypodensities in left lobe of thyroid. No pericardial effusion. No right-sided axillary or retropectoral lymph nodes. Central venous catheter in good position. Evaluation of the abdomen is limited due to motion. There is a small hypodensity in hepatic segment 8 measuring approximately 3.0 mm, unchanged, likely a cyst. Gallbladder is unremarkable. The spleen and pancreas are unremarkable, as well as are the adrenal glands. The aortic contour is nonaneurysmal. Extensive diverticular disease of the sigmoid colon without active current inflammation. There is mild diastasis recti. No retroperitoneal adenopathy. No dilated loops of large or small bowel. 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 No displaced fracture. No suspicious osteolytic or osteoblastic lesion. Mild narrowing of the pubic symphysis with erosions. IMPRESSION: 1. Continued interval size decrease of the right perihilar mass, now measuring up to 2.0 cm in AP di mension using the same imaging plane as the 10/16/17 examination, previously 2.6 cm. 2. Marked interval worsening with new and enlarged left retropectoral and axillary lymph nodes. The largest retropectoral lymph nodes measures 1.7 cm and largest axillary lymph node measures up to 1.6 cm short axis. There is also new left supraclavicular adenopathy measuring up to 1.7 cm. These retrop ectoral subclavicular and axillary lymph nodes have central hypodensity, suggesting internal necrosis . 3. Hypodensities of the thyroid. Nonemergent ultrasound may be beneficial. POS: [facility]
== END 2018-02-01 09:35 | disposition home or self-care (01) ==
LOC: SCSCT 09:34
PROVIDERS: ATTEND Internal Medicine Hematology & Oncology
DX: C34.31 Malignant neoplasm of lower lobe, right bronchus or lung (principal); E07.9 Disorder of thyroid, unspecified
CPT/HCPCS: 71260; 74177; 82565

== ENCOUNTER 2018-03-07 10:25 | Emergency (ER) | payer MEDICARE ==
[2018-03-07 11:28] LABS: #Eosinphils 0.1 thou/uL (0.0-0.7); #Lymphocytes 0.7 thou/uL (1.20-3.40); #Monocytes 0.8 thou/uL (0.11-0.59); #Neutrophils 4.3 thou/uL (1.40-6.50); %Basophils 0.5 % (0.0-1.0); %Lymphocytes 11.5 % (21.0-51.0); %Monocytes 12.9 % (0.0-10.0); Hemoglobin 15.5 g/dL (12.0-16.0); Mean Corpuscular Hemoglobin 31.1 pg (27.0-31.0); Mean Corpuscular Volume 91.3 fl (81.0-99.0); Mean Platelet Volume 7.1 fL (7.4-10.4); Platelet Count 252 thou/uL (130-400); RBC Distribution Width 12.3 % (11.5-14.5); White Blood Cell (WBC) Count 5.9 thou/uL (4.8-10.8)
[2018-03-07] MEDS ORDERED: ISOVUE-370 76%-LOCM 1 ML ONE (11:57)
[2018-03-07 12:03] LABS: ALT (SGPT) 14 U/L (8-55); AST (SGOT) 24 U/L (5-34); Albumin 4.1 g/dL (3.4-4.8); Alkaline Phosphatase 88 U/L (40-150); Anion Gap 12 mmol/L (10-20); BUN (Urea Nitrogen) 10 mg/dL (9.8-20.1); Bilirubin, Total 0.7 mg/dL (0.2-1.2); Calc. Creatinine Clearance 0 mL/min (70-130); Calcium 9.4 mg/dL (7.8-10.44); Carbon Dioxide 21 mmol/L (23-31); Chloride 99 mmol/L (98-107); Estimated GFR-MDRD Greater than 90; Globulin 3.7 g/dL (2.4-3.5); Glucose 97 mg/dL (80-115); Lipase 15 U/L (8-78); Potassium 4.4 mmol/L (3.5-5.1); Protein, Total 7.8 g/dL (6.0-8.3); Sodium 128 mmol/L (136-145)
[2018-03-07 12:45] LABS: Bilirubin Negative (Negative); Blood, Urine Moderate (Negative); Clarity CLEAR (Clear); Glucose, Urine (Dipstick) Negative (Negative); Leukocyte Negative (Negative); Nitrite Negative (Negative); Protein, Urine (Dipstick) Negative (Neg-Trace); Specific Gravity, Urine 1.009 (1.002-1.036); pH, Urine 6.5 (5.0-9.0)
[2018-03-07 12:55] LABS: Bacteria/HPF 1+ HPF (None Seen); Hyaline Casts/LPF 4-6 HYALINE CAST LPF (0-3 Hyaline); Pathc Cast-AUWi Flag 1.74 (0-2.49); WBC/HPF 0-3 HPF (0-3)
--- NOTE | 2018-03-07 14:15 | CT ---
CT ABDOMEN AND PELVIS WITH CONTRAST: Technique: Multiple axial tomograms were obtained through the abdomen and pelvis with IV enhancement. Indications: Abdominal pain with nausea and vomiting, diarrhea. History of lung cancer with recent co mpletion of chemo and radiation. Comparison: CT abdomen/pelvis dated 02-01-18. FINDINGS: Images through the lung bases reveal calcified right hilar lymph node and soft tissue density of the right hilum which has been previously noted. There is hazy alveolar opacity in the posterior right lung base which could represent infiltrate or a telectasis. The liver, spleen, and pancreas appear unremarkable. Stomach and duodenum are unremarkable. Pancreas is unremarkable. Adrenal glands appear normal. Kidneys are unremarkable. No hydronephrosis. There are vascular calcifi cations in the renal arteries. No definite renal calculus identified. Urinary bladder is unremarkable . Small bowel loops appear normal. There is diverticulosis involving the left colon and sigmoid. No definite evidence of diverticulitis. The uterus and adnexa appear unremarkable. Aorta is normal caliber with atherosclerotic calcification . No adenopathy identified. IMPRESSION: 1. Extensive diverticulosis in the left colon and sigmoid. No CT evidence of diverticulitis. 2. No acute process identified. POS: [facility]
== END 2018-03-07 13:39 | disposition home or self-care (01) ==
LOC: ERS 10:25
DX: R10.12 Left upper quadrant pain (principal); R11.10 Vomiting, unspecified; Z87.891 Personal history of nicotine dependence; Z85.118 Personal history of other malignant neoplasm of bronchus and lung
CPT/HCPCS: 74177; 80053; 81003; 81015; 83690; 85025; 93005; 96360; 96361

== ENCOUNTER 2018-05-11 08:59 | Outpatient (CLI) | payer MEDICARE ==
[2018-05-11 09:38] LABS: Estimated GFR-MDRD - POC Greater than 90
--- NOTE | 2018-05-12 10:33 | CT ---
CHEST CT WITH CONTRAST ABDOMEN CT WITH CONTRAST: HISTORY: Malignant neoplasm of the right lower lobe. TECHNIQUE: A chest and abdomen CT are performed with IV contrast. Enteric contrast is also administered. Coron al reformatted images are submitted for interpretation. FINDINGS: CHEST CT: No mediastinal mass, lymphadenopathy, or hematoma. Heart size is normal. No pericardial effusion. There are coronary calcifications. Atherosclerosis of the aorta is noted. No aneurysmal, dissection , or periaortic fat stranding. Redemonstration of right hilar mass with associated calcification. Currently, this mass measures 2.3 cm anterior posterior x 2.3 cm mediolateral x 3.1 cm craniocaudal. There are adjacent lung parenchy mal changes which may represent postobstructive atelectasis or extension of tumor. These changes are similar to the previous exam. Additional ground-glass and alveolar opacities are noted. The degree of opacification has slightly progressed when compared to the previous examination. A possible infi ltrate or extension of tumor are differential considerations. There is stable aeration of the left l rola. Trachea and central bronchi are patent. Previously noted left axillary lymph nodes have significantly reduced in size. There is a single lef t axillary lymph node currently measuring 1.6 x 0.5 cm. This lymph node previously measured 3.4 x 1. [address]: Stable enhancement of the solid organs. No intraabdominal mass, lymphadenopathy, free air, or free f luid. No evidence of bowel obstruction. Diverticulosis, without evidence of diverticulitis is noted . Symmetric enhancement of the kidneys. No obstructive uropathy. There are no lytic or blastic lesions in the osseous structures. IMPRESSION: 1. Improved left-sided axillary lymph nodes. Single residual lymph node does remain. 2. Redemonstration of right hilar mass without any significant change. Currently, the mass measures 2.3 x 2.3 cm (previously measuring 2.3 x 2.4 cm). 3. Interval alveolar opacities in the posterior aspect of the superior segment of the right lower lo be. Focal infiltrate is suspected. Extension of tumor cannot be completely excluded. Additional li near opacities of the right lung parenchyma are noted and stable. POS: [facility]
== END 2018-05-11 09:00 | disposition home or self-care (01) ==
LOC: SCSCT 08:59
PROVIDERS: ATTEND Internal Medicine Hematology & Oncology
DX: C34.31 Malignant neoplasm of lower lobe, right bronchus or lung (principal); R91.8 Other nonspecific abnormal finding of lung field
CPT/HCPCS: 71260; 74177; 82565

== ENCOUNTER 2018-11-01 08:32 | Outpatient (CLI) | payer MEDICARE ==
[2018-11-01 09:55] LABS: Estimated GFR-MDRD - POC Greater than 90
--- NOTE | 2018-11-01 12:06 | CT ---
CT CHEST WITH IV CONTRAST CT ABDOMEN WITH IV AND ORAL CONTRAST: History: Lung cancer. Restaging. Comparison: 05-11-18 and multiple previous exams back to 08-20-17. FINDINGS: At the right infrahilar level right lower lobe, dystrophic calcification is present. The remaining so ft tissue density mass is now 2.2 cm length x 2.0 cm depth x 1.7 cm width where it was previously 3.1 cm x 2.3 cm x 2.3 cm. Parenchymal opacification of the medial aspect of the right lung is consistent with a radiation port with some fibrosis. No new lung masses or mediastinal adenopathy are evident. At the left axilla, the previously detailed lymph node is less than 1 cm greatest diameter. Within the partially visualized upper abdomen, tiny cystic lesions within the liver are stable. A new lobular 1.5 cm low density mass arises from the body of the left adrenal glands. Centered within the subcutaneous tissues of the right flank at the T11 level is a lobular soft tissue density lesion ar t is well circumscribed and measures 1.5 cm length on the axial images. Just to the right of midline at the T9-10 level, within the subcutaneous tissues, a well circumscribed oval heterogeneous soft tis natty density mass measures up to 2.1 cm x 1.6 cm. These were not present on the most recent exam. A tiny new oval soft tissue density nodule also lies posterior to the inferior pole of the left kidne y. IMPRESSION: While the right infrahilar lung mass has continued to decrease in size, there has been interval appea carroll of a left adrenal mass and multiple soft tissue density nodules within the subcutaneous fat and the left retroperitoneum as detailed above. Metastatic disease is favored. For percutaneous biopsy, the right posterior paraspinal subcutaneous would be most amendable for access. POS: [facility]
== END 2018-11-01 08:33 | disposition home or self-care (01) ==
LOC: BICCT 08:32
PROVIDERS: ATTEND Internal Medicine Hematology & Oncology
DX: C34.91 Malignant neoplasm of unspecified part of right bronchus or lung (principal); R91.8 Other nonspecific abnormal finding of lung field; E27.9 Disorder of adrenal gland, unspecified
CPT/HCPCS: 71260; 74160; 82565

== ENCOUNTER 2018-11-27 13:37 | Outpatient (CLI) | payer MEDICARE ==
--- NOTE | 2018-11-27 18:15 | PET ---
PET SCAN WITH CT ATTENUATION CORRECTION 11/27/18 HISTORY: Lung cancer with left adrenal lesion. Patient has undergone external beam radiation therapy. COMPARISON: 08/08/17 CORRELATION: Chest CT 11/01/17, 05/11/18. TECHNIQUE: PET scan with CT attenuation correction is performed from the base of the brain to the proximal thigh s following the intravenous administration of 12.4 millicuries of [id number]. FINDINGS: HEAD AND NECK: No abnormal FDG localization. CHEST: There is increased FDG avidity involving an enlarged right axillary lymph node with maximum SUV of 5. 4. There is increased FDG avidity involving the right lung in the perihilar region with a maximum MELENDEZ V between 3.2 and 3.3. ABDOMEN AND PELVIS: There is increased FDG avidity in a well circumscribed mass that is in the deep subcutaneous fat, rig ht posterior paraspinal region. This lesion is at approximately T9-10 level and has a maximum SUV of 8.8. There is a second hypermetabolic lesion that is slightly more inferior and is noted at the T12 l evel. This lesion is also in the right flank subcu fat and has a maximum SUV of 6.1. There is a third smaller lesion in the subcu fat along the posterior right hemithorax which has a maximum SUV of 2.1 . the size of this lesion precludes adequate FDG characterization. There is increased FDG avidity in the left retroperitoneal region, specifically, posterior to the lef t psoas muscle with a maximum SUV of 3.2. there is increased FDG avidity associated with a soft tissu e mass anterior to the left psoas muscle with a maximum SUV of 5.1. This lesion is at approximately t he L3 level. There is marked FDG avidity involving the left adrenal gland with a maximum SUV of 4.8. There is increased FDG avidity associated with a soft tissue mass in the anterior central abdominal m esentery with a maximum SUV of 5.9. There is mild FDG avidity involving the sigmoid colon. Correlate for diverticulitis. OSSEOUS STRUCTURES: No abnormal FDG localization. IMPRESSION: 1. Multifocal subcutaneous fat lesions with FDG avidity as well as the right axillary hypermetab olic lymph node. There is concern for multifocal metastases. 2. Hypermetabolic focus in the left adrenal gland, also worrisome for metastases until proven ot herwise. 3. Left retroperitoneal and abdominal mesenteric and anterior left psoas muscle hypermetabolic l esions as described above. 4. Possible sigmoid colon diverticular inflammation. POS: [facility]
== END 2018-11-27 13:38 | disposition home or self-care (01) ==
LOC: PET 13:37
PROVIDERS: ATTEND Internal Medicine Hematology & Oncology
DX: C34.90 Malignant neoplasm of unspecified part of unspecified bronchus or lung (principal); R93.3 Abnormal findings on diagnostic imaging of other parts of digestive tract
CPT/HCPCS: 78815; A9552

== ENCOUNTER 2018-12-22 20:26 | Emergency (ER) | payer MEDICARE ==
[2018-12-22 21:35] LABS: INR-International Normal Ratio 1.1; PTT 27.6 SEC (22.9-36.1); Prothrombin Time 14.3 SEC (12.0-14.7)
[2018-12-22 21:50] LABS: Band 14 % (5-11); Eosinophils 1 % (0-10); Lymphocytes 15 % (21-51); MDiff Complete? YES; Mean Corpuscular HGB CONC 32.7 g/dL (32.0-36.0); Mean Corpuscular Hemoglobin 30.4 pg (27.0-31.0); Mean Corpuscular Volume 92.9 fL (78.0-98.0); Mean Platelet Volume 6.3 fL (7.4-10.4); Monocytes 11 % (0-10); Neutrophil 59 % (42-75); Platelet Count 287 thou/uL (130-400); RBC Distribution Width 12.1 % (11.5-14.5); Red Blood Cell (RBC) Count 4.61 mill/uL (4.20-5.40); White Blood Cell (WBC) Count 8.5 thou/uL (4.8-10.8)
[2018-12-22 21:52] LABS: ALT (SGPT) 11 U/L (8-55); AST (SGOT) 17 U/L (5-34); Albumin 3.5 g/dL (3.4-4.8); Alkaline Phosphatase 85 U/L (40-150); Anion Gap 15 mmol/L (10-20); BUN (Urea Nitrogen) 9 mg/dL (9.8-20.1); Bilirubin, Total 0.6 mg/dL (0.2-1.2); Calc. Creatinine Clearance 0 mL/min (70-130); Calcium 9.1 mg/dL (7.8-10.44); Carbon Dioxide 20 mmol/L (23-31); Chloride 102 mmol/L (98-107); Estimated GFR-MDRD Greater than 90; Globulin 3.2 g/dL (2.4-3.5); Glucose 92 mg/dL (80-115); Potassium 4.1 mmol/L (3.5-5.1); Protein, Total 6.7 g/dL (6.0-8.3); Sodium 133 mmol/L (136-145)
== END 2018-12-22 22:54 | disposition home or self-care (01) ==
LOC: ERS 20:26
DX: K92.1 Melena (principal); T45.1X5A Adverse effect of antineoplastic and immunosuppressive drugs, initial encounter; C34.92 Malignant neoplasm of unspecified part of left bronchus or lung; Z87.891 Personal history of nicotine dependence
CPT/HCPCS: 80053; 82274; 85025; 85610; 85730; 86850; 86900; 86901; 96360; 96361

== ENCOUNTER 2019-03-11 08:12 | Outpatient (CLI) | payer MEDICARE ==
--- NOTE | 2019-03-11 09:45 | CT ---
CT CHEST WITH CONTRAST CT ABDOMEN WITH CONTRAST: COMPARISON: 11/01/2018 CT exam. 11/27/[address] exam CLINICAL HISTORY: Lung cancer. FINDINGS: There is dense consolidation of the medial right lower lobe, and patchy right perihilar opacification , with degree of opacity having progressed from prior exam, more confluent, currently. There are subpleural irregular opacities of the left lung with mild adjacent groundglass opacity and interstiti al prominence of the left upper lobe. Trace right pleural fluid is present. There is also trace pericardial fluid. Postsurgical alteration at the right hilum is again seen. Thoracoabdominal aorta c ontains multifocal atherosclerotic calcification. Hypodense nodularity of the left adrenal gland is redemonstrated, and where previous measurement 1.4 cm, this measures 1.3 cm, grossly stable. Liver and spleen are grossly stable. Tiny hepatic hypodensities are stable. No significant interval change of either kidney with a stable slight promin ence of the right renal collecting system, although no perinephric inflammation or edema. Right adrenal gland is unremarkable. No peripancreatic inflammation. Contrast opacified small bowel is normal in caliber. No pericolonic inflammation. There is moderate r etained fecal material in the colon and scattered colonic diverticula are present. Imaged osseous structures are grossly stable. Prior punctate nodularity of the posterior left perinephric space has resolved. A tiny soft tissue no dule at the left axillary region is grossly stable. 1 cm right axillary lymph node, in the region of hypermetabolism on prior PET CT, is grossly stable in size. There has been decreased volume, with mild residual stranding remaining at site of prior subcutaneous lesion of the posterior paraspinous location of the mid back, measuring 1.3 cm. An additional nodular density of the right flank has also reduced in size with mild residual ill-defined stranding remaining, measuring 1.1 cm. Previously documented soft tissue nodule anterior to left psoas muscle has decreased in size, now measuring 9 mm in diameter IMPRESSION: 1. Interval increased confluence of opacification occupying the medial right lung predominantly righ t lower lobe as well as patchy right perihilar opacification. Redemonstration of postoperative change at the right hilum. With regard to the area of developed, confluent consolidation, the parench yma is heterogeneous and therefore this could relate to underlying mass versus a component of necrotizing pneumonia which could produce this imaging appearance. Recommend clinical correlation, as well as imaging follow-up. 2. Newly developed subpleural irregular opacities with underlying groundglass and interstitial opaci fication of the left upper lobe. This could relate to sequela from prior radiation versus extension of malignancy. Continued imaging follow-up will be necessary. 3. Grossly stable left adrenal hypodense mass. 4. Improved scattered soft tissue nodularity, as compared to 11/01/2018 exam, as detailed above. Transcribed Date/Time: 03/11/2019 9:58 AM
[2019-03-11] MEDS ORDERED: ISOVUE-370 76%-LOCM 1 ML ONE (17:04)
== END 2019-03-11 08:13 | disposition home or self-care (01) ==
LOC: BICCT 08:12
PROVIDERS: ATTEND Internal Medicine Hematology & Oncology
DX: C34.31 Malignant neoplasm of lower lobe, right bronchus or lung (principal); R91.8 Other nonspecific abnormal finding of lung field; E27.8 Other specified disorders of adrenal gland
CPT/HCPCS: 71260; 74160; Q9966

== ENCOUNTER 2019-04-15 12:00 | Outpatient (CLI) | payer MEDICARE ==
--- NOTE | 2019-04-15 12:31 | ULT ---
RIGHT LOWER EXTREMITY VENOUS DUPLEX EXAM: HISTORY: Pain and swelling around knee. FINDINGS: Real-time color Doppler evaluation of the right lower extremity was performed from groin to calf. Th is includes evaluation of the common femoral, superficial and profunda femoral, saphenous, popliteal, and posterior tibial veins. This shows a patent deep venous system with normal compressibility and a ugmentation. There is no evidence of DVT. IMPRESSION: No evidence of deep vein thrombosis of the right lower extremity. POS: [facility]
== END 2019-04-15 12:01 | disposition home or self-care (01) ==
LOC: SCSULT 12:00
PROVIDERS: ATTEND Internal Medicine Hematology & Oncology
DX: I82.90 Acute embolism and thrombosis of unspecified vein (principal); M79.604 Pain in right leg; M79.89 Other specified soft tissue disorders

== ENCOUNTER 2019-05-30 08:29 | Outpatient (CLI) | payer MEDICARE ==
[2019-05-30] MEDS ORDERED: Iopamidol 370 76% 100 ML VIAL ONE (09:00)
--- NOTE | 2019-05-30 10:30 | CT ---
CT chest with IV contrast CT abdomen with IV and oral contrast HISTORY: Right lower lobe lung cancer. Restaging. COMPARISON: 03/11/2019 and 11/01/2018. FINDINGS: Subsegmental atelectasis of the posterior medial aspect of the right lower lobe is similar in appearance to the prior study. Radiation port scarring at the medial aspect of the right lung is also stable. Calcification within the right hilar lymph nodes, unchanged. No enlarged mediastinal lym ph nodes are apparent. Small amount calcification at the aortic arch. Tiny nonspecific low-density lesions within the liver are stable and likely represent small cysts. The previous low density mass w ithin the left adrenal gland is now barely perceptible. No new masses within the abdomen. Calcification throughout the arterial structures. Mild diverticular involvement of the visualized por tions of the colon without inflammation. The pelvis was not imaged. IMPRESSION: Stable radiographic appearance of the postradiation changes of the right chest. No new ab normalities are demonstrated. Interval resolution of the left adrenal mass. Atherosclerosis.
== END 2019-05-30 08:30 | disposition home or self-care (01) ==
LOC: SCSCT 08:29
PROVIDERS: ATTEND Internal Medicine Hematology & Oncology
DX: C34.31 Malignant neoplasm of lower lobe, right bronchus or lung (principal); I70.0 Atherosclerosis of aorta; E27.8 Other specified disorders of adrenal gland
CPT/HCPCS: 71260; 74160; Q9967

== ENCOUNTER 2019-09-23 14:31 | Outpatient (CLI) | payer MEDICARE ==
[~2019-09-23 14:31] MED LIST: Magnevist 469MG/ML 20 ML VIAL ONE
--- NOTE | 2019-09-23 15:49 | MRI ---
BRAIN MRI WITH AND WITHOUT CONTRAST: HISTORY: Lung cancer. Abnormal head CT finding. COMPARISON: 11/15/2017. CORRELATION: Head CT with and without contrast 09/23/2019. FINDINGS: Gradient echo sequence: No hemorrhage. Calvarium: Appropriate T1 marrow signal intensity/ Midline brain parenchyma: Unremarkable. Cerebrum:No parenchymal mass, mass effect or midline shift. Brain volume is age appropriate. Cortical richard-white matter differentiation is preserved. On this examination, there is no significant left temporal lobe sulcal effacement. There is no evidence of loss of cortical richard-white matter different iation throughout the entire cerebrum. T2 and FLAIR white matter hyperintensities have progressed since the previous examination and may represent posttreatment change. Progression of chronic small-v essel ischemic change can also be considered. No associated restricted diffusion or enhancement. Ventricles: No evidence of hydrocephalus. Sinuses and mastoid air cells: Adequate aeration. Diffusion: Central arterial flow is maintained. Absent restricted diffusion. Postcontrast images: No pathologic enhancement of the brain parenchyma. IMPRESSION: 1. No restricted diffusion. No evidence of infarct. 2. No abnormal enhancement. 3. Lack of sulcation and lack of richard-white matter differentiation in the left temporal lobe, suggest ed on recent CT is not demonstrated on the current exam. 4. Progression of white matter hyperintensities likely due to posttreatment change or due to progress ion of chronic small-vessel ischemic disease. Transcribed Date/Time: 09/23/2019 4:00 PM
== END 2019-09-23 14:32 | disposition home or self-care (01) ==
LOC: MRI 14:31
PROVIDERS: ATTEND Internal Medicine Hematology & Oncology
DX: C34.31 Malignant neoplasm of lower lobe, right bronchus or lung (principal); R93.0 Abnormal findings on diagnostic imaging of skull and head, not elsewhere classified; R51 Headache
CPT/HCPCS: 36415; 70470; 70553; 71260; 74177; 80053; 82248; 83615; 84100; 84436; 84443; 84550; 85025; A9579; Q9967

== ENCOUNTER 2020-02-03 09:57 | Day surgery (SDC) | payer MEDICARE ==
[~2020-02-03 09:57] MED LIST changes: -Magnevist 469MG/ML 20 ML VIAL ONE; +NIVOLUMAB IVPB SCH; +SODIUM CHLORIDE 0.9% IVPB SCH
[2020-02-03] MEDS ORDERED: Sodium Chloride 0.9% 20 ML ONE (10:02)
[2020-02-03 10:11] VITALS: BP 128/75; TEMP 98.2
== END 2020-02-03 12:50 | disposition home or self-care (01) ==
LOC: ONC/OP 09:57
PROVIDERS: ATTEND Internal Medicine Hematology & Oncology
DX: Z51.12 Encounter for antineoplastic immunotherapy (principal); C34.31 Malignant neoplasm of lower lobe, right bronchus or lung; Z88.8 Allergy status to other drugs, medicaments and biological substances
CPT/HCPCS: 96413; J1642

== ENCOUNTER 2020-02-27 13:32 | Day surgery (SDC) | payer MEDICARE ==
[2020-02-27] MEDS ORDERED: Sodium Chloride 0.9% 20 ML ONE (15:03)
[2020-02-27 15:17] VITALS: BP 129/74; TEMP 97.7
== END 2020-02-27 16:09 | disposition home or self-care (01) ==
LOC: ONC/OP 13:32
PROVIDERS: ATTEND Internal Medicine Hematology & Oncology
DX: Z51.12 Encounter for antineoplastic immunotherapy (principal); C34.31 Malignant neoplasm of lower lobe, right bronchus or lung; Z88.8 Allergy status to other drugs, medicaments and biological substances
CPT/HCPCS: 36415; 80053; 82248; 83615; 84100; 84436; 84443; 84550; 96413; J1642

== ENCOUNTER 2020-03-26 10:33 | Day surgery (SDC) | payer MEDICARE ==
[2020-03-26 10:52] VITALS: BP 131/79; TEMP 98.1
[2020-03-26] MEDS ORDERED: Sodium Chloride 0.9% 20 ML ONE (10:53)
== END 2020-03-26 15:52 | disposition home or self-care (01) ==
LOC: ONC/OP 10:33
PROVIDERS: ATTEND Internal Medicine Hematology & Oncology
DX: Z51.12 Encounter for antineoplastic immunotherapy (principal); C34.31 Malignant neoplasm of lower lobe, right bronchus or lung; Z88.8 Allergy status to other drugs, medicaments and biological substances
CPT/HCPCS: 36415; 80053; 82248; 83615; 84100; 84436; 84443; 84550; 85025; 96413; J1642

== ENCOUNTER 2020-04-03 15:59 | Inpatient (IN) | payer MEDICARE, OTHER ==
[~2020-04-03 15:59] MED LIST changes: +Iopamidol-370 76% 500 ML 1 ML ONE; -NIVOLUMAB IVPB SCH; -SODIUM CHLORIDE 0.9% IVPB SCH
[2020-04-03 16:42] LABS: #Basophils 0.1 thou/uL (0.0-0.2); #Lymphocytes 0.4 thou/uL (1.20-3.40); #Monocytes 0.7 thou/uL (0.11-0.59); #Neutrophils 13.8 thou/uL (1.40-6.50); %Basophils 0.9 % (0.0-1.0); %Eosinophils 0.1 % (0.0-10.0); %Lymphocytes 2.6 % (21.0-51.0); %Monocytes 4.5 % (0.0-10.0); %Neutrophils 91.9 % (42.0-75.0); Hemoglobin 13.3 g/dL (12.0-16.0); Mean Corpuscular HGB CONC 33.3 g/dL (32.0-36.0); Mean Corpuscular Hemoglobin 30.3 pg (27.0-31.0); Mean Platelet Volume 6.6 fL (7.4-10.4); Platelet Count 310 thou/uL (130-400); RBC Distribution Width 12.5 % (11.5-14.5); Red Blood Cell (RBC) Count 4.39 mill/uL (4.20-5.40)
[2020-04-03 17:06] LABS: ALT (SGPT) 18 U/L (8-55); AST (SGOT) 19 U/L (5-34); Albumin 3.9 g/dL (3.4-4.8); Alkaline Phosphatase 97 U/L (40-110); Anion Gap 12 mmol/L (10-20); BUN (Urea Nitrogen) 11 mg/dL (9.8-20.1); Bilirubin, Total 0.6 mg/dL (0.2-1.2); Calc. Creatinine Clearance 0 mL/min (70-130); Calcium 9.3 mg/dL (7.8-10.44); Carbon Dioxide 24 mmol/L (23-31); Chloride 97 mmol/L (98-107); Estimated GFR-MDRD 90; Globulin 3.4 g/dL (2.4-3.5); Glucose 122 mg/dL (80-115); Lipase 9 U/L (8-78); Potassium 3.9 mmol/L (3.5-5.1); Protein, Total 7.3 g/dL (6.0-8.3); Sodium 129 mmol/L (136-145)
[2020-04-03 17:47] LABS: Bacteria/HPF 3+ HPF (None Seen); Bilirubin Negative (Negative); Blood, Urine 2+ (Negative); Clarity Turbid (Clear); Glucose, Urine (Dipstick) Normal (Negative); Leukocyte 25 Leu/uL (Negative); Nitrite Negative (Negative); Protein, Urine (Dipstick) Negative (Neg-Trace); RBC/HPF 21-50 HPF (0-3); Squamous Epithelial 0-3 HPF (0-3); Urobilinogen Normal mg/dL (Less than 2); WBC/HPF 0-3 HPF (0-3)
[2020-04-03] MEDS ORDERED: Morphine 4 MG/ML VIAL ONE (18:20)
[2020-04-03] MEDS ORDERED: cefTRIAXone\\ROCEPHIN 2 GM VIAL ONE (18:20)
--- NOTE | 2020-04-03 18:44 | CT ---
CT OF THE ABDOMEN AND PELVIS WITH IV CONTRAST INDICATION: Abdominal pain, nausea and vomiting with fever COMPARISON: CT of the chest, abdomen and pelvis dated September 23, [address] the abdomen and pelv is dated March 07, 2018. FINDINGS: ABDOMEN: Lung bases: Stable scarring and volume loss within the right lower lobe Liver: Tiny hypodensities within the right hepatic lobe are stable likely reflect cysts. Gallbladder: Normal appearing. Pancreas: Normal. Adrenal glands: Normal. Spleen: Calcified granuloma Kidneys and ureters: Stable left renal cysts. No hydronephrosis Vasculature: There are moderate vascular calcifications seen involving the visualized vasculature. Lymph nodes:No lymphadenopathy. Free fluid in abdomen:No free fluid is evident. PELVIS: Small and large bowel: Colonic diverticulosis without evidence of active diverticulitis. Appendix:Not definitely seen Bladder: Normal. Rectal and perirectal soft tissues:Normal. Reproductive structures: Normal. Free fluid in pelvis: No free fluid is evident. Lymphadenopathy pelvis: No lymphadenopathy is evident. Osseous structures: No acute osseous abnormality. No destructive osteolytic or osteoblastic lesion i s identified. There is scattered degenerative and osteoarthritic changes. Soft tissues:Normal. IMPRESSION: 1. No acute abnormality.
[2020-04-03] MEDS ORDERED: Ondansetron PF 4 MG/2 ML Vial ONE (18:48)
[2020-04-03] MEDS ORDERED: Ketorolac Tromethamine 30 MG/ML VIAL ONE (19:19)
[2020-04-03] MEDS ORDERED: Acetaminophen 500 MG TAB ONE (21:12)
[2020-04-03] MEDS ORDERED: metroNIDAZOLE 500 MG in Premix Bag 1 BAG IVPB SCH (22:00)
--- NOTE | 2020-04-03 22:08 | RAD ---
Chest AP view INDICATION: History of shortness of breath, sepsis and bilateral lung cancer COMPARISON: CT the chest, abdomen and pelvis dated September 23, 2019 FINDINGS: Lungs: There is stable scarring and right lower lobe collapse in the right lung base. Cardiac silhouette: There is stable mild cardiomegaly Pulmonary vasculature: Normal Pleural spaces: No pleural effusion or pneumothorax is demonstrated. Upper abdomen: No abnormality seen. Osseous structures: No acute osseous abnormality. Additional findings: There is a stable right IJ chest wall port. IMPRESSION: No acute cardiopulmonary abnormality.
[2020-04-03 22:54] LABS: Vancomycin, Trough 15.7 ug/mL
[2020-04-03] MEDS ORDERED: Cefepime 2 GM in Sodium Chloride 0.9% 100 ML IVPB SCH (23:00)
[2020-04-03 23:19] VITALS: BMI 32.2
[2020-04-03] MEDS: Sodium Chloride 0.9% 1,000 ML IV SCH (23:38)
--- NOTE | 2020-04-04 01:29 | HP ---
CHIEF COMPLAINT: Abdominal pain, nausea, vomiting, and fever. HISTORY OF PRESENT ILLNESS: Ms. Lozada is a 69-year-old female with past medical history of small cell lung cancer, on chemo; TIAs; among others; presents to the emergency room with nausea, vomiting, and abdominal pain for the last 2 days. In the emergency room, the patient was febrile with a temperature 101.8, oxygen saturation was 93% on room air, the patient was tachycardic with a heart rate of 133. Lab work, the patient had an elevated WBC count of 15,000. Sodium 129. Imaging studies include the CT abdomen and pelvis, no acute finding, no obvious source of infection. Septic workup done in the ED. Started on IV antibiotics. COVID-19 test also is being done. The patient is being admitted to hospital for further management. PAST MEDICAL HISTORY: 1. TIA. 2. Lung cancer, on chemo. PAST SURGICAL HISTORY: Appendectomy. SOCIAL HISTORY: Former cigarette smoker. Denies alcohol drinking or drug abuse. HOME MEDICATIONS: Please see home medication reconciliation form for updated medications. ALLERGIES: NO KNOWN ALLERGIES. FAMILY HISTORY: Reviewed and noncontributory. REVIEW OF SYSTEMS: Review of 14 systems negative except what is mentioned in history of present illness. PHYSICAL EXAMINATION: GENERAL: The patient is awake, alert, in moderate distress. VITAL SIGNS: Blood pressure 126/64, pulse is 133, temperature 101.8, oxygen saturation 93% on room air, respiratory rate is 20. HEAD AND NECK: Normocephalic and atraumatic. NECK: Supple. CHEST: Decreased air entry bilaterally. HEART: S1 and S2. Regular, tachycardic. ABDOMEN: Soft, diffusely tender. Bowel sounds present. NEUROLOGIC: Awake, alert, oriented x3. PSYCH: Normal mood. EXTREMITIES: No clubbing or cyanosis. GENITOURINARY: No suprapubic tenderness. No flank tenderness. LABORATORY DATA: Labs show 3+ bacteria and no wbc's, urinalysis. Chemistry, sodium is 129. WBC count is elevated at 15, lymphocytes are low. ASSESSMENT: 1. Sepsis secondary to ? 2. Abdominal pain, nausea, vomiting. 3. Lung cancer. 4. Immunocompromised on chemotherapy. 5. History of transient ischemic attacks. PLAN: 1. Admit. 2. Septic workup including blood cultures, COVID-19 swab done in the ED. 3. Isolation precautions. 4. IV antibiotics. 5. IV fluids. 6. Reconcile home medications. 7. DVT prophylaxis as appropriate. 8. Expected length of stay, 2 midnights or more. Job ID: [id number]
[2020-04-04 05:56] LABS: #Eosinphils 0.1 thou/uL (0.0-0.7); #Lymphocytes 0.6 thou/uL (1.20-3.40); #Monocytes 0.7 thou/uL (0.11-0.59); #Neutrophils 7.1 thou/uL (1.40-6.50); %Basophils 0.4 % (0.0-1.0); %Eosinophils 0.6 % (0.0-10.0); %Lymphocytes 7.5 % (21.0-51.0); %Monocytes 8.7 % (0.0-10.0); %Neutrophils 82.8 % (42.0-75.0); Mean Corpuscular HGB CONC 33.9 g/dL (32.0-36.0); Mean Corpuscular Hemoglobin 30.9 pg (27.0-31.0); Mean Corpuscular Volume 91.2 fL (78.0-98.0); Mean Platelet Volume 6.8 fL (7.4-10.4); Platelet Count 200 thou/uL (130-400); RBC Distribution Width 12.4 % (11.5-14.5); White Blood Cell (WBC) Count 8.5 thou/uL (4.8-10.8)
[2020-04-04 06:11] LABS: ALT (SGPT) 16 U/L (8-55); AST (SGOT) 18 U/L (5-34); Albumin 3.2 g/dL (3.4-4.8); Alkaline Phosphatase 86 U/L (40-110); Anion Gap 12 mmol/L (10-20); BUN (Urea Nitrogen) 10 mg/dL (9.8-20.1); Bilirubin, Total 0.3 mg/dL (0.2-1.2); Calc. Creatinine Clearance 100 mL/min (70-130); Calcium 8.3 mg/dL (7.8-10.44); Carbon Dioxide 20 mmol/L (23-31); Chloride 106 mmol/L (98-107); Estimated GFR-MDRD Greater than 90; Globulin 2.8 g/dL (2.4-3.5); Glucose 113 mg/dL (80-115); Potassium 4.1 mmol/L (3.5-5.1); Sodium 134 mmol/L (136-145)
[2020-04-04] MEDS ORDERED: Albumin 25% 25 GM/100 ML BOT IVPB SCH (07:42)
[2020-04-04] MEDS ORDERED: HYDROcodone/Acetaminophen 10/325 mg Tablet PO PRN ×2 (07:42→07:51)
[2020-04-04] MEDS: Famotidine/PF 20 mg/2ml Vial SLOW IVP SCH ×2 (08:14→20:28)
[2020-04-04] MEDS ORDERED: Famotidine 20 MG TAB PO SCH (09:00)
[2020-04-04] MEDS: Vancomycin 1 GM in Premix Bag 1 BAG IVPB SCH ×2 (10:30→20:28)
[2020-04-04] MEDS: metroNIDAZOLE 500 MG in Premix Bag 1 BAG IVPB SCH ×2 (13:08→17:41)
[2020-04-04] MEDS: Sodium Chloride 0.9% 1,000 ML IV SCH (15:12)
[2020-04-04] MEDS: Cefepime 2 GM in Sodium Chloride 0.9% 100 ML IVPB SCH (16:38)
[2020-04-04 17:38] LABS: SARS-CoV-2 MS2 Positive; SARS-CoV-2 N Gene Negative; SARS-CoV-2 S Gene Negative; SARS-CoV-2 orf1ab Negative
[2020-04-04] MEDS ORDERED: Bisacodyl 5 MG TAB PO PRN (18:24)
--- NOTE | 2020-04-04 18:24 | PDOC.HOSPP ---
- Subjective Encounter Date: 04/04/20 Encounter Time: 11:15 Subjective: pt up in bed no complains - Objective Vital Signs & Weight: Vital Signs (12 hours) Temp Pulse Resp BP Pulse Ox 04/04/20 16:00 101 H 20 116/72 97 04/04/20 11:15 99.0 F 97 19 104/67 98 04/04/20 08:00 109 H 18 107/55 L 97 Weight Weight 193 lb 11.2 oz I&O: 04/03/20 04/04/20 04/05/20 06:59 06:59 06:59 Intake Total 925 Output Total 200 Balance 925 -200 Result Diagrams: 04/04/20 05:43 04/04/20 05:43 Hospitalist ROS - Review of Systems Cardiovascular: denies: chest pain, palpitations, orthopnea, paroxysmal noc. dyspnea, edema, light headedness, other Gastrointestinal: denies: nausea, vomiting, abdominal pain, diarrhea, constipation, melena, hematochezia, other Genitourinary: denies: dysuria, frequency, incontinence, hematuria, retention, other - Medication Medications: Active Medications Generic Name Dose Route Start Last Admin Trade Name Freq PRN Reason Stop Dose Admin Famotidine 20 mg 04/04/20 09:00 04/04/20 08:14 Pepcid SLOW IVP 20 mg BID CARIDAD Administration Sodium Chloride 1,000 mls @ 75 mls/hr 04/03/20 21:00 04/04/20 15:12 Normal Saline 0.9% IV Not Given .[id number] CARIDAD Vancomycin HCl 1 gm/ Device 200 mls @ 200 mls/hr 04/04/20 09:00 04/04/20 10: 30 IVPB 200 mls Q12HR CARIDAD Administration Cefepime HCl 2 gm/ Sodium 100 mls @ 200 mls/hr 04/04/20 15:00 04/04/20 16:38 Chloride IVPB 100 mls 0300,1500 CARIDAD Administration Metronidazole 500 mg/ Device 100 mls @ 100 mls/hr 04/04/20 10:00 04/04/20 13: 08 IVPB 100 mls 0200,1000,1800 CARIDAD Administration - Exam Neck: negative: supple, symmetric, no JVD, no thyromegaly, no lymphadenopathy, no carotid bruit, JVD Heart: negative: RRR, no murmur, no gallops, no rubs, normal peripheral pulses, irregular, diminshed peripheral pulses, murmur present, II/IV, III/IV Respiratory: negative: CTAB, no wheezes, no rales, no ronchi, normal chest expansion, no tachypnea, normal percussion, rales, rhonchi, tachypneic, wheezes Gastrointestinal: negative: soft, non-tender, non-distended, normal bowel sounds , no palpable masses, no hepatomegaly, no splenomegaly, no bruit, no guarding, no rigidity, tender to palpation, distended, diminished bowl sounds, voluntary guarding Hosp A/P (1) Fever Code(s): R50.9 - FEVER, UNSPECIFIED Status: Acute (2) Nausea & vomiting Code(s): R11.2 - NAUSEA WITH VOMITING, UNSPECIFIED Status: Acute (3) Pain in the abdomen Code(s): R10.9 - UNSPECIFIED ABDOMINAL PAIN Status: Acute (4) Small cell lung cancer Code(s): C34.90 - MALIGNANT NEOPLASM OF UNSP PART OF UNSP BRONCHUS OR LUNG Status: Chronic - Plan will continue abx for now. covid test pending. will advance diet as tolerated.
[2020-04-04] MEDS ORDERED: Prevnar 13-Val Conj/PF 0.5 ML SYRINGE IM ONE (21:00)
[2020-04-05] MEDS ORDERED: Acetaminophen 325 MG TAB PO PRN (00:51)
[2020-04-05] MEDS ORDERED: Acetaminophen 650 MG Suppository PR PRN (00:51)
[2020-04-05] MEDS: metroNIDAZOLE 500 MG in Premix Bag 1 BAG IVPB SCH ×2 (00:54→08:26)
[2020-04-05] MEDS: Cefepime 2 GM in Sodium Chloride 0.9% 100 ML IVPB SCH ×2 (02:50→16:03)
[2020-04-05] MEDS: Sodium Chloride 0.9% 1,000 ML IV SCH (05:20)
[2020-04-05] MEDS: Famotidine/PF 20 mg/2ml Vial SLOW IVP SCH (08:26)
[2020-04-05] MEDS: Polyethylene Glycol 3350 17 GM Packet PO SCH (08:26)
--- NOTE | 2020-04-05 10:59 | RAD ---
PORTABLE CHEST 1 VIEW: Date: 04/05/2020 Time: 0819 hours HISTORY: Shortness of breath. Bilateral lung cancer. FINDINGS/IMPRESSION: Right-sided Port-A-Cath remains in place. The heart size is borderline. The aorta is tortuous. Scarri ng and atelectasis in the right lung base are again seen. No lobar consolidation, pneumothoraces, or left pleural effusions are identified. There is no evidence of pulmonary edema. POS: OFF
[2020-04-05] MEDS ORDERED: Bisacodyl 5 MG TAB PO SCH (15:15)
--- NOTE | 2020-04-05 15:18 | PDOC.HOSPP ---
- Subjective Encounter Date: 04/05/20 Encounter Time: 14:00 Subjective: pt up in chair no complains. - Objective Vital Signs & Weight: Vital Signs (12 hours) Temp Pulse Resp BP Pulse Ox 04/05/20 11:15 98.1 F 88 20 134/60 98 04/05/20 08:30 97.9 F 93 18 104/56 L 99 04/05/20 05:00 98.0 F 85 20 110/58 L 98 Weight Weight 193 lb 11.2 oz I&O: 04/04/20 04/05/20 04/06/20 06:59 06:59 06:59 Intake Total 925 1590 Output Total 1200 Balance 925 390 Result Diagrams: 04/04/20 05:43 04/04/20 05:43 Hospitalist ROS - Review of Systems Cardiovascular: denies: chest pain, palpitations, orthopnea, paroxysmal noc. dyspnea, edema, light headedness, other Gastrointestinal: denies: nausea, vomiting, abdominal pain, diarrhea, constipation, melena, hematochezia, other Genitourinary: denies: dysuria, frequency, incontinence, hematuria, retention, other - Medication Medications: Active Medications Generic Name Dose Route Start Last Admin Trade Name Freq PRN Reason Stop Dose Admin Famotidine 20 mg 04/04/20 09:00 04/05/20 08:26 Pepcid SLOW IVP 20 mg BID CARIDAD Administration Polyethylene Glycol 17 gm 04/05/20 09:00 04/05/20 08:26 Miralax PO 17 gm DAILY CARIDAD Administration - Exam Neck: negative: supple, symmetric, no JVD, no thyromegaly, no lymphadenopathy, no carotid bruit, JVD Heart: negative: RRR, no murmur, no gallops, no rubs, normal peripheral pulses, irregular, diminshed peripheral pulses, murmur present, II/IV, III/IV Respiratory: negative: CTAB, no wheezes, no rales, no ronchi, normal chest expansion, no tachypnea, normal percussion, rales, rhonchi, tachypneic, wheezes Gastrointestinal: negative: soft, non-tender, non-distended, normal bowel sounds , no palpable masses, no hepatomegaly, no splenomegaly, no bruit, no guarding, no rigidity, tender to palpation, distended, diminished bowl sounds, voluntary guarding Hosp A/P (1) Nausea & vomiting Code(s): R11.2 - NAUSEA WITH VOMITING, UNSPECIFIED Status: Acute (2) Pain in the abdomen Code(s): R10.9 - UNSPECIFIED ABDOMINAL PAIN Status: Acute (3) Fever Code(s): R50.9 - FEVER, UNSPECIFIED Status: Acute (4) Small cell lung cancer Code(s): C34.90 - MALIGNANT NEOPLASM OF UNSP PART OF UNSP BRONCHUS OR LUNG Status: Chronic (5) Tobacco abuse Code(s): Z72.0 - TOBACCO USE Status: Chronic - Plan will continue abx for now. covid test pending. will advance diet as tolerated. 04/05 will stop iv abx no fever. cx negative. will discontinue covid isolation since she is negative. will add medication for constipation. pt has a hx of smoking will add tiotropium.
[2020-04-05] MEDS: Amoxicillin/Potassium Clav 875 MG TAB PO SCH (20:20)
[2020-04-05] MEDS: Senokot S 8.6-50 MG TAB PO SCH (20:21)
[2020-04-06] MEDS ORDERED: Benzonatate 100 MG CAP PO PRN (08:54)
[2020-04-06] MEDS ORDERED: Ondansetron PF 4 MG/2 ML Vial IVP PRN (08:54)
[2020-04-06] MEDS ORDERED: Simethicone Chewable 80 MG TAB PO PRN (08:55)
[2020-04-06] MEDS ORDERED: Ondansetron ODT 4 MG TAB PO SCH (09:00)
[2020-04-06] MEDS: Amoxicillin/Potassium Clav 875 MG TAB PO SCH ×2 (10:03→20:05)
[2020-04-06] MEDS: Senokot S 8.6-50 MG TAB PO SCH ×2 (10:03→20:05)
[2020-04-06] MEDS: Polyethylene Glycol 3350 17 GM Packet PO SCH (10:04)
[2020-04-06] MEDS ORDERED: Ondansetron ODT 4 MG TAB PO PRN (15:00)
--- NOTE | 2020-04-06 17:54 | PDOC.HOSPP ---
- Subjective Encounter Date: 04/06/20 Encounter Time: 10:15 Subjective: pt up in bed had bm yesterday but complains of some abd bloating today. - Objective Vital Signs & Weight: Vital Signs (12 hours) Temp Pulse Resp BP Pulse Ox 04/06/20 16:00 98.1 F 84 17 122/56 L 97 04/06/20 12:00 97.9 F 94 18 122/70 94 L 04/06/20 08:00 97.2 F L 98 17 117/65 93 L Weight Weight 193 lb 11.2 oz I&O: 04/05/20 04/06/20 04/07/20 06:59 06:59 06:59 Intake Total 1590 820 720 Output Total 1200 Balance 390 820 720 Result Diagrams: 04/04/20 05:43 04/04/20 05:43 Hospitalist ROS - Review of Systems Respiratory: denies: cough, dry, shortness of breath, hemoptysis, SOB with excertion, pleuritic pain, sputum, wheezing, other Cardiovascular: denies: chest pain, palpitations, orthopnea, paroxysmal noc. dyspnea, edema, light headedness, other Gastrointestinal: reports: abdominal pain. denies: nausea, vomiting, diarrhea, constipation, melena, hematochezia, other - Medication Medications: Active Medications Generic Name Dose Route Start Last Admin Trade Name Freq PRN Reason Stop Dose Admin Amoxicillin/Clavulanate Potassium 875 mg 04/05/20 21:00 04/06/20 10:03 Augmentin PO 875 mg Q12HR CARIDAD Administration Benzonatate 100 mg 04/06/20 08:54 04/06/20 10:02 Tessalon PO 100 mg TIDPRN PRN Administration Cough Pantoprazole Sodium 40 mg 04/06/20 09:00 04/06/20 10:03 Protonix PO 40 mg DAILY CARIDAD Administration Polyethylene Glycol 17 gm 04/05/20 09:00 04/06/20 10:04 Miralax PO Not Given DAILY CARIDAD Senna/Docusate Sodium 1 tab 04/05/20 21:00 04/06/20 10:03 Senokot S PO 1 tab BID CARIDAD Administration Simethicone 80 mg 04/06/20 08:55 04/06/20 10:03 Mylicon Chewable PO 80 mg PCHS PRN Administration Gas Pain - Exam Neck: negative: supple, symmetric, no JVD, no thyromegaly, no lymphadenopathy, no carotid bruit, JVD Heart: negative: RRR, no murmur, no gallops, no rubs, normal peripheral pulses, irregular, diminshed peripheral pulses, murmur present, II/IV, III/IV Respiratory: negative: CTAB, no wheezes, no rales, no ronchi, normal chest expansion, no tachypnea, normal percussion, rales, rhonchi, tachypneic, wheezes Gastrointestinal: soft, normal bowel sounds, no guarding, no rigidity Hosp A/P (1) Nausea & vomiting Code(s): R11.2 - NAUSEA WITH VOMITING, UNSPECIFIED Status: Acute (2) Pain in the abdomen Code(s): R10.9 - UNSPECIFIED ABDOMINAL PAIN Status: Acute (3) Fever Code(s): R50.9 - FEVER, UNSPECIFIED Status: Acute (4) Small cell lung cancer Code(s): C34.90 - MALIGNANT NEOPLASM OF UNSP PART OF UNSP BRONCHUS OR LUNG Status: Chronic (5) Tobacco abuse Code(s): Z72.0 - TOBACCO USE Status: Chronic - Plan will continue abx for now. covid test pending. will advance diet as tolerated. 04/05 will stop iv abx no fever. cx negative. will discontinue covid isolation since she is negative. will add medication for constipation. pt has a hx of smoking will add tiotropium. 04/06 pt has no more fever. She has some abdomen pain and did not eat much breakfast and she feels she needs one more day and then she can go home. will discharge her in am.
[2020-04-07] MEDS: Senokot S 8.6-50 MG TAB PO SCH (08:22)
[2020-04-07] MEDS: Amoxicillin/Potassium Clav 875 MG TAB PO SCH (08:22)
[2020-04-07] MEDS: Polyethylene Glycol 3350 17 GM Packet PO SCH (08:23)
--- NOTE | 2020-04-07 15:16 | PQF ---
CLINICAL DOCUMENTATION IMPROVEMENT CLARIFICATION FORM: ICD-10 Updated PLEASE DO AN ADDENDUM TO THE PROGRESS NOTE WITH ANY DOCUMENTATION UPDATES OR ADDITIONS AND CARRY THROUGH TO DC SUMMARY. THANK YOU. DATE: 04/07/2020 ATTN: Dr. López Please exercise your independent, professional judgment in responding to the clarification form. Clinical indicators are provided on the bottom of this form for your review Please check appropriate box(s) to clarify if the following diagnosis has been ruled in or ruled out: SEPSIS [ ] Ruled in diagnosis [ x ] Continue to treat [ ] Resolved [ ] Ruled out diagnosis [ ] Improving [ ] Cannot rule out diagnosis [ ] Other diagnosis [ ] Unable to determine In addition, please specify: Present on Admission (POA): [x ] Yes [ ] No [ ] Unable to determine For continuity of documentation, please document condition throughout progress notes and discharge summary. Thank You. CLINICAL INDICATORS - SIGNS / SYMPTOMS / LABS / RESULTS AND LOCATION IN MR ER Record 04/03: VS: BP 126/64, Pulse 133, Temp. 101.8 Resp. 18, O2 sat 93 on RA DX: sepsis tachycardia H&P 04/03: Lab data: WBC count 15, lymphocytes are low Assessment: Sepsis secondary to ? Abd pain, nausea, vomiting 04/05 (Williamflavio) will stop IV abx no fever, cx negative. will dc covid isolation since she is negative RISKS: H&P 04/03: Hx of small cell lung cancer, on chemo. Immunocompromised on chemotherapy. TREATMENT: Order 04/03-04/04: IV Flagyl 500mg Order 04/03-04/05: Vancomycin 1 gm Order 04/03-04/05: Cefepime 2 gm IV Order 04/05: Augmentin 875 mg po q 12 hr Thank you, Davina (This form is maintained as a part of the permanent medical record) 2014 [employer] All Rights Reserved Davina Sarkar RN, BSN [email or web address] Cell [facility]
[2020-04-07 16:51] VITALS: BP 118/70; TEMP 97.1
--- NOTE | 2020-04-07 19:51 | DIS ---
DATE OF ADMISSION: 04/03/2020 DATE OF DISCHARGE: 04/07/2020 DISCHARGE DIAGNOSES: As of the followin. Abdominal pain, nausea vomiting, resolved. 2. Fever, resolved. 3. Recent diagnosis of lung cancer, appears to be small-cell carcinoma on chemotherapy. 4. History of transient ischemic attack. 5. Constipation. HOSPITAL COURSE: The patient is a 69-year-old female, who initially presented to the hospital with abdominal pain, nausea, vomiting. She was noted to have a fever 101 in the ER. At this time, she did have a CT of abdomen and pelvis, which was normal. She was tested for COVID, which was negative. She had no diarrhea. The patient states that she had not had a bowel movement for 3 or 4 days. At this time, she was given laxatives and she had a bowel movement. She was watched for a couple of days. She had no fever at all. Her urine was completely normal. The patient will be discharged home. She states she feels well. She will follow up with her primary and also her oncologist. PHYSICAL EXAMINATION: VITAL SIGNS: 97.9, 83, 20, 94% on room air, 112/75. GENERAL: She is awake, alert, and oriented x3. Does not appear in distress. CV: S1, S2 present. No murmurs, rubs, gallops. MEDICATIONS: 1. She is going to be on: Augmentin 875 one p.o. twice daily. 2. MiraLAX 17 g daily. 3. Senokot 1 p.o. twice daily. 4. Pepcid 20 mg twice daily. 5. [place] as needed. 6. I have advised her to take stool softeners while she is on pain medications. 7. The patient will be discharged home. She will follow up with her doctors and her oncologist. 8. I have given her a total of 10 days of antibiotics. 9. Blood cultures were negative. Urine was negative. COVID-[address] was [address] 10[address] CT of abdomen and pelvis that was done also was normal. Job ID: [id number]
== END 2020-04-07 17:03 | disposition home or self-care (01) | DRG 872 ==
LOC: ERS 15:59 → 2SW 21:15 → 2NO 04-05 15:31
PROVIDERS: ADMIT Internal Medicine; ATTEND Internal Medicine
PROC: 8E0ZXY6 Isolation (ICD-10-PCS; principal; 2020-04-03)
DX: A41.9 Sepsis, unspecified organism (principal); C34.90 Malignant neoplasm of unspecified part of unspecified bronchus or lung; Z20.828 Contact with and (suspected) exposure to other viral communicable diseases; K59.00 Constipation, unspecified; Z86.73 Personal history of transient ischemic attack (TIA), and cerebral infarction without residual deficits; Z90.49 Acquired absence of other specified parts of digestive tract; Z87.891 Personal history of nicotine dependence
CPT/HCPCS: 36415; 71045; 74177; 80053; 80202; 81003; 81015; 82728; 83605; 83690; 85025; 86140; 87040; 87635; 96361; 96365; 96366; 96367; 96375; J0692; J0696; J1885; J2270; J2405; J3370; J3490; J7030; P9047; Q0162; Q9967; S0028; U0003

== ENCOUNTER 2020-04-22 08:53 | Outpatient (CLI) | payer MEDICARE ==
--- NOTE | 2020-04-22 11:12 | CT ---
CT BRAIN WITH AND WITHOUT IV CONTRAST: HISTORY: Lung cancer. Malignant neoplasm of lower lobe, right bronchus, or lung. COMPARISON: 09/23/2019. FINDINGS: Changes of chronic small-vessel ischemic disease are again seen. The ventricular size is appropriate and the basilar cisterns are patent. No evidence of acute infarct, hemorrhage, mass, midline shift, or abnormal extraaxial fluid collections is seen. No abnormal postcontrast enhancement is noted. T he bony calvarium is intact. The visualized paranasal sinuses and mastoid air cells are well aerated. 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 IMPRESSION: No CT evidence of brain metastases. POS: [facility]
--- NOTE | 2020-04-22 11:49 | CT ---
CT CHEST WITH IV CONTRAST CT ABDOMEN WITH IV CONTRAST CT PELVIS WITH IV CONTRAST: HISTORY: Lung cancer. Malignant neoplasm of lower lobe, right bronchus of lung. COMPARISON: CT chest, abdomen, and pelvis dated 09/23/[address] abdomen and pelvis dated 04/03/2020. FINDINGS: No evidence of mediastinal, hilar, or axillary mass or lymphadenopathy is seen. Atelectatic change i n the right lower lobe is again seen. Chronic changes in the left lung are again noted. No lung nod ules or masses are seen. No pleural or pericardial effusions are identified. Tiny low-density lesions in the liver are stable. No calcified gallstones are seen. The calcified g ranulomas in the spleen are again noted. The pancreas and adrenal glands are normal. Small low-dens ity lesions in the kidneys are likely cysts. No free air, free fluid, or lymphadenopathy is seen noted in the abdomen or pelvis. Uterus is presen t. The small bowel loops are not abnormally dilated. There is colonic diverticulosis. There are vascular calcifications without evidence of aneurysmal dilatation of the thoracoabdominal a minerva. There are degenerative changes in the thoracolumbar spine. No osteolytic or osteoblastic lesi ons are seen. IMPRESSION: No evidence of metastatic disease. POS: [facility]
== END 2020-04-22 08:54 | disposition home or self-care (01) ==
LOC: SCSCT 08:53
PROVIDERS: ATTEND Internal Medicine Hematology & Oncology
DX: C34.31 Malignant neoplasm of lower lobe, right bronchus or lung (principal); R93.0 Abnormal findings on diagnostic imaging of skull and head, not elsewhere classified
CPT/HCPCS: 70470; 71260; 74177

== ENCOUNTER 2020-07-15 14:05 | Day surgery (SDC) | payer MEDICARE ==
[~2020-07-15 14:05] MED LIST changes: -Iopamidol-370 76% 500 ML 1 ML ONE; +NIVOLUMAB IVPB SCH; +SODIUM CHLORIDE 0.9% IVPB SCH
[2020-07-15] MEDS ORDERED: Sodium Chloride 0.9% 30 ML ONE (14:07)
[2020-07-15 14:34] VITALS: BP 129/74; TEMP 97.6
[2020-07-15 14:48] LABS: #Eosinphils 0.2 thou/uL (0.0-0.7); #Lymphocytes 1.7 thou/uL (1.20-3.40); #Monocytes 0.9 thou/uL (0.11-0.59); #Neutrophils 4.6 thou/uL (1.40-6.50); %Basophils 0.5 % (0.0-1.0); %Eosinophils 2.1 % (0.0-10.0); %Lymphocytes 22.9 % (21.0-51.0); %Monocytes 12.3 % (0.0-10.0); %Neutrophils 62.1 % (42.0-75.0); Hemoglobin 12.9 g/dL (12.0-16.0); Mean Corpuscular HGB CONC 33.3 g/dL (32.0-36.0); Mean Corpuscular Hemoglobin 30.1 pg (27.0-31.0); Mean Corpuscular Volume 90.5 fL (78.0-98.0); Mean Platelet Volume 6.9 fL (7.4-10.4); Platelet Count 325 thou/uL (130-400); RBC Distribution Width 12.9 % (11.5-14.5); Red Blood Cell (RBC) Count 4.27 mill/uL (4.20-5.40); White Blood Cell (WBC) Count 7.4 thou/uL (4.8-10.8)
[2020-07-15 14:56] LABS: ALT (SGPT) 10 U/L (8-55); AST (SGOT) 12 U/L (5-34); Albumin 3.8 g/dL (3.4-4.8); Alkaline Phosphatase 112 U/L (40-110); Anion Gap 11 mmol/L (10-20); BUN (Urea Nitrogen) 16 mg/dL (9.8-20.1); Bilirubin, Total 0.2 mg/dL (0.2-1.2); Calc. Creatinine Clearance 0 mL/min (70-130); Calcium 8.6 mg/dL (7.8-10.44); Carbon Dioxide 26 mmol/L (23-31); Chloride 102 mmol/L (98-107); Estimated GFR-MDRD Greater than 90; Globulin 2.6 g/dL (2.4-3.5); Glucose 112 mg/dL (80-115); Protein, Total 6.4 g/dL (6.0-8.3); Sodium 135 mmol/L (136-145); Uric Acid 5.6 mg/dL (2.6-6.0)
[2020-07-15 15:10] LABS: T4 7.4 ug/dL (4.87-11.72); Thyroid Stimulating Hormone 1.2995 uIU/mL (0.35-4.94)
== END 2020-07-15 15:16 | disposition home or self-care (01) ==
LOC: ONC/OP 14:05
PROVIDERS: ATTEND Internal Medicine Hematology & Oncology
DX: Z51.12 Encounter for antineoplastic immunotherapy (principal); C34.31 Malignant neoplasm of lower lobe, right bronchus or lung
CPT/HCPCS: 80053; 83615; 84436; 84443; 84550; 85025; 96413; J1642

== ENCOUNTER 2020-08-12 13:41 | Day surgery (SDC) | payer MEDICARE ==
[2020-08-12] MEDS ORDERED: Sodium Chloride 0.9% 20 ML ONE (14:08)
== END 2020-08-12 15:22 | disposition home or self-care (01) ==
LOC: ONC/OP 13:41
PROVIDERS: ATTEND Internal Medicine Hematology & Oncology
DX: Z51.12 Encounter for antineoplastic immunotherapy (principal); C34.31 Malignant neoplasm of lower lobe, right bronchus or lung; Z88.8 Allergy status to other drugs, medicaments and biological substances
CPT/HCPCS: 36415; 80053; 82248; 83615; 84100; 84436; 84443; 84550; 96413; J1642

== ENCOUNTER 2020-09-10 10:06 | Day surgery (SDC) | payer MEDICARE ==
[2020-09-10] MEDS ORDERED: Sodium Chloride 0.9% 20 ML ONE (10:10)
[2020-09-10 10:55] VITALS: BP 134/74; TEMP 98.8
== END 2020-09-10 12:31 | disposition home or self-care (01) ==
LOC: ONC/OP 10:06
PROVIDERS: ATTEND Internal Medicine Hematology & Oncology
DX: Z51.12 Encounter for antineoplastic immunotherapy (principal); C34.31 Malignant neoplasm of lower lobe, right bronchus or lung
CPT/HCPCS: 96413; J1642

== ENCOUNTER 2020-10-08 09:18 | Day surgery (SDC) | payer MEDICARE ==
[2020-10-08] MEDS ORDERED: Sodium Chloride 0.9% 20 ML ONE (09:19)
[2020-10-08 09:36] VITALS: BP 133/74; TEMP 98.7
== END 2020-10-08 11:03 | disposition home or self-care (01) ==
LOC: ONC/OP 09:18
PROVIDERS: ATTEND Internal Medicine Hematology & Oncology
DX: Z51.12 Encounter for antineoplastic immunotherapy (principal); C34.31 Malignant neoplasm of lower lobe, right bronchus or lung
CPT/HCPCS: 96413; J1642

== ENCOUNTER 2020-11-05 11:13 | Day surgery (SDC) | payer MEDICARE ==
[2020-11-05] MEDS ORDERED: Sodium Chloride 0.9% 20 ML ONE (11:32)
[2020-11-05 15:15] VITALS: BP 156/80; TEMP 98.8
== END 2020-11-05 15:15 | disposition home or self-care (01) ==
LOC: ONC/OP 11:13
PROVIDERS: ATTEND Internal Medicine Hematology & Oncology
DX: Z51.12 Encounter for antineoplastic immunotherapy (principal); C34.31 Malignant neoplasm of lower lobe, right bronchus or lung; Z88.8 Allergy status to other drugs, medicaments and biological substances
CPT/HCPCS: 96413; J1642

== ENCOUNTER → 2020-12-04 | Day surgery (SDC) | payer MEDICARE ==
[~2020-12-04] MED LIST changes: +Sodium Chloride 0.9% 20 ML ONE
[2020-12-04 12:38] VITALS: BP 128/72; TEMP 97.6
== END ==
LOC: ONC/OP 11:44
PROVIDERS: ATTEND Internal Medicine Hematology & Oncology
DX: Z51.12 Encounter for antineoplastic immunotherapy (principal); C34.31 Malignant neoplasm of lower lobe, right bronchus or lung; Z88.8 Allergy status to other drugs, medicaments and biological substances
CPT/HCPCS: 96413; J1642

== ENCOUNTER 2020-12-31 09:49 | Day surgery (SDC) | payer MEDICARE ==
[~2020-12-31 09:49] MED LIST changes: -Sodium Chloride 0.9% 20 ML ONE
[2020-12-31 10:09] VITALS: BP 141/75; TEMP 98.3
[2020-12-31] MEDS ORDERED: Sodium Chloride 0.9% 20 ML ONE (10:09)
== END 2020-12-31 11:19 | disposition home or self-care (01) ==
LOC: ONC/OP 09:49
PROVIDERS: ATTEND Internal Medicine Hematology & Oncology
DX: Z51.12 Encounter for antineoplastic immunotherapy (principal); C34.31 Malignant neoplasm of lower lobe, right bronchus or lung; Z88.8 Allergy status to other drugs, medicaments and biological substances
CPT/HCPCS: 96413; J1642

== ENCOUNTER → 2021-01-28 | Day surgery (SDC) | payer MEDICARE ==
[~2021-01-28] MED LIST changes: +Sodium Chloride 0.9% 20 ML ONE
[2021-01-28 09:48] VITALS: BP 114/78; TEMP 98.3
== END ==
LOC: ONC/OP 09:04
PROVIDERS: ATTEND Internal Medicine Hematology & Oncology
DX: Z51.12 Encounter for antineoplastic immunotherapy (principal); C34.31 Malignant neoplasm of lower lobe, right bronchus or lung; Z88.8 Allergy status to other drugs, medicaments and biological substances
CPT/HCPCS: 96413; J1642

== ENCOUNTER 2021-11-01 12:08 | Outpatient (CLI) | payer MEDICARE | END 2021-11-01 12:09 | disposition home or self-care (01) | LOC: BICRAD 12:08 | PROVIDERS: ATTEND Family Medicine | DX: M25.561 Pain in right knee (principal); M25.562 Pain in left knee ==

== ENCOUNTER 2021-12-02 11:07 | Outpatient (CLI) | payer MEDICARE | END 2021-12-02 11:08 | disposition home or self-care (01) | LOC: BICRAD 11:07 | PROVIDERS: ATTEND Family Medicine | DX: M25.561 Pain in right knee (principal); M17.11 Unilateral primary osteoarthritis, right knee ==

== ENCOUNTER 2022-02-09 13:17 | Outpatient (CLI) | payer MEDICARE, MEDICAID | END 2022-02-09 13:18 | disposition home or self-care (01) | LOC: SCSMRI 13:17 | PROVIDERS: ATTEND Family Medicine | DX: M47.26 Other spondylosis with radiculopathy, lumbar region (principal); M51.16 Intervertebral disc disorders with radiculopathy, lumbar region; M48.061 Spinal stenosis, lumbar region without neurogenic claudication | CPT/HCPCS: 72148 ==

== ENCOUNTER 2022-12-29 10:34 | Inpatient (IN) | payer MEDICARE, MEDICAID ==
[2022-12-29 11:12] LABS: Actual Bicarbonate (HCO3v) 22 mEq/L (22-28); Base Excess -3.9 mEq/L (-2.0 to +3.0); Calcium, Ionized (venous) 1.14 mmol/L (1.16-1.32); Chloride (VBG) 102 mmol/L (98-106); Hemoglobin (Hb) 9.1 g/dL (11.7-16.1); Potassium (VBG) 4.37 mmol/L (3.70-5.30); Sodium 132.2 mmol/L (133-146); pH (venous) 7.32 (7.32-7.43)
[2022-12-29] MEDS ORDERED: Vancomycin 1.5 GRAM/300 ML BAG 1.5 GM in Premix Bag 1 BAG IVPB SCH (11:15)
[2022-12-29 11:17] LABS: #Lymphocytes 0.8 thou/uL (1.20-3.40); #Neutrophils 7.9 thou/uL (1.40-6.50); %Basophils 0.2 % (0.0-1.0); %Eosinophils 0.3 % (0.0-10.0); %Lymphocytes 8.7 % (21.0-51.0); %Monocytes 9.8 % (0.0-10.0); %Neutrophils 81.1 % (42.0-75.0); Hemoglobin 8.9 g/dL (12.0-16.0); Mean Corpuscular HGB CONC 32.2 g/dL (32.0-36.0); Mean Corpuscular Volume 93.1 fl (78.0-98.0); Mean Platelet Volume 6.7 fL (7.4-10.4); Platelet Count 363 10x3/uL (130-400); RBC Distribution Width 15.3 % (11.5-14.5); Red Blood Cell (RBC) Count 2.96 mill/uL (4.20-5.40); White Blood Cell (WBC) Count 9.7 10x3/uL (4.8-10.8)
[2022-12-29 11:19] LABS: ALT (SGPT) 13 U/L (8-55); AST (SGOT) 32 U/L (5-34); Albumin 2.7 g/dL (3.4-4.8); Alkaline Phosphatase 86 U/L (40-110); Anion Gap 16 mmol/L (10-20); BUN (Urea Nitrogen) 54 mg/dL (9.8-20.1); Bilirubin, Total 0.5 mg/dL (0.2-1.2); Calc. Creatinine Clearance 0 mL/min (70-130); Calcium 8.9 mg/dL (7.8-10.44); Carbon Dioxide 22 mmol/L (23-31); Chloride 101 mmol/L (98-107); Estimated GFR 22; Globulin 3.2 g/dL (2.4-3.5); Glucose 100 mg/dL (83-110); Potassium 4.8 mmol/L (3.5-5.1); Protein, Total 5.9 g/dL (5.8-8.1); Sodium 134 mmol/L (136-145)
[2022-12-29 11:21] LABS: INR-International Normal Ratio 1.3; Prothrombin Time 16.4 sec (12.0-14.7)
[2022-12-29 11:22] LABS: PTT 37.9 sec (22.9-36.1)
[2022-12-29 11:57] LABS: Bacteria/HPF 4+ HPF (None Seen); Bilirubin Negative (Negative); Blood, Urine Negative (Negative); Clarity Clear (Clear); Glucose, Urine (Dipstick) Normal (Negative); Ketone, Urine Negative (Negative); Leukocyte 25 Leu/uL (Negative); Nitrite Negative (Negative); Protein, Urine (Dipstick) 10 mg/dL (Neg-Trace); RBC/HPF 0-3 HPF (0-3); Specific Gravity, Urine 1.013 (1.002-1.036); Squamous Epithelial 0-3 HPF (0-3); Urobilinogen Normal mg/dL (Less than 2); WBC/HPF 0-3 HPF (0-3); pH, Urine 5.5 (5.0-9.0)
[2022-12-29] MEDS ORDERED: Fentanyl 100 MCG/2 ML VIAL ONE ×3 (12:45→15:53)
[2022-12-29] MEDS ORDERED: Ondansetron PF 4 MG/2 ML Vial IVP PRN (14:55)
[2022-12-29] MEDS ORDERED: Acetaminophen 325 MG TAB PO PRN (14:55)
[2022-12-29] MEDS ORDERED: Meropenem 1 GM in Sodium Chloride 0.9% 100 ML IVPB SCH ×2 (14:58→20:00)
[2022-12-29 17:55] VITALS: BMI 23.3
[2022-12-29] MEDS: Lactated Ringer's 1,000 ML IV SCH (17:57)
[2022-12-29] MEDS ORDERED: Scopolamine 1.5 mg/72 hour Patch TD SCH (18:45)
[2022-12-29] MEDS ORDERED: Vancomycin 1 GM in Premix Bag 1 BAG IVPB SCH (21:00)
[2022-12-29] MEDS ORDERED: Morphine 2 MG/ML VIAL SLOW IVP PRN (22:17)
[2022-12-29] MEDS: Morphine 2 MG/ML VIAL SLOW IVP PRN (22:31)
[2022-12-30] MEDS: Lactated Ringer's 1,000 ML IV SCH ×3 (02:13→21:05)
[2022-12-30] MEDS: Meropenem 500 MG in Sodium Chloride 0.9% 100 ML IVPB SCH ×2 (04:11→17:01)
[2022-12-30 05:52] LABS: #Lymphocytes 0.6 thou/uL (1.20-3.40); #Monocytes 0.9 thou/uL (0.11-0.59); #Neutrophils 6.9 thou/uL (1.40-6.50); %Eosinophils 0.3 % (0.0-10.0); %Lymphocytes 6.6 % (21.0-51.0); %Monocytes 11.1 % (0.0-10.0); %Neutrophils 82.1 % (42.0-75.0); Hemoglobin 7.2 g/dL (12.0-16.0); Mean Corpuscular HGB CONC 32.3 g/dL (32.0-36.0); Mean Corpuscular Hemoglobin 30.4 pg (27.0-31.0); Mean Platelet Volume 6.6 fL (7.4-10.4); Platelet Count 322 10x3/uL (130-400); RBC Distribution Width 15.3 % (11.5-14.5); Red Blood Cell (RBC) Count 2.38 mill/uL (4.20-5.40); White Blood Cell (WBC) Count 8.4 10x3/uL (4.8-10.8)
[2022-12-30 06:08] LABS: Hemoglobin A1c 5.1 % (4.0-6.0)
[2022-12-30 06:37] LABS: ALT (SGPT) 13 U/L (8-55); AST (SGOT) 33 U/L (5-34); Albumin 2.2 g/dL (3.4-4.8); Alkaline Phosphatase 69 U/L (40-110); Anion Gap 13 mmol/L (10-20); BUN (Urea Nitrogen) 41 mg/dL (9.8-20.1); Bilirubin, Direct 0.2 mg/dL (0.1-0.3); Bilirubin, Total 0.4 mg/dL (0.2-1.2); Calc. Creatinine Clearance 50 mL/min (70-130); Calcium 8.6 mg/dL (7.8-10.44); Carbon Dioxide 19 mmol/L (23-31); Chloride 109 mmol/L (98-107); Estimated GFR 58; Glucose 96 mg/dL (83-110); Magnesium 2.1 mg/dL (1.6-2.6); Potassium 3.9 mmol/L (3.5-5.1); Sodium 137 mmol/L (136-145)
[2022-12-30 06:39] LABS: Base Excess -5.8 mEq/L (-2.0 to +3.0); Calcium, Ionized (venous) 0.89 mmol/L (1.16-1.32); Chloride (VBG) 111 mmol/L (98-106); Hemoglobin (Hb) 8.7 g/dL (11.7-16.1); Potassium (VBG) 4.15 mmol/L (3.70-5.30); Sodium 130.7 mmol/L (133-146); pH (venous) 7.69 (7.32-7.43)
[2022-12-30] MEDS: Vancomycin HCl 750 MG in Sodium Chloride 0.9% 250 ML 250 ML IVPB SCH (12:04)
[2022-12-30] MEDS: Morphine 2 MG/ML VIAL SLOW IVP PRN (12:37)
[2022-12-30 13:59] LABS: Hemoglobin 7.3 g/dL (12.0-16.0)
[2022-12-31] MEDS: Morphine 2 MG/ML VIAL SLOW IVP PRN ×3 (01:38→15:33)
[2022-12-31] MEDS: Lactated Ringer's 1,000 ML IV SCH (04:22)
[2022-12-31] MEDS: Meropenem 500 MG in Sodium Chloride 0.9% 100 ML IVPB SCH ×2 (04:22→15:33)
[2022-12-31 05:08] LABS: Hemoglobin 7.4 g/dL (12.0-16.0); Mean Corpuscular HGB CONC 32.3 g/dL (32.0-36.0); Mean Corpuscular Hemoglobin 30.6 pg (27.0-31.0); Mean Corpuscular Volume 94.6 fl (78.0-98.0); Mean Platelet Volume 6.6 fL (7.4-10.4); Platelet Count 338 10x3/uL (130-400); RBC Distribution Width 15.4 % (11.5-14.5); Red Blood Cell (RBC) Count 2.42 mill/uL (4.20-5.40); White Blood Cell (WBC) Count 12.3 10x3/uL (4.8-10.8)
[2022-12-31 05:32] LABS: Anion Gap 12 mmol/L (10-20); BUN (Urea Nitrogen) 31 mg/dL (9.8-20.1); Calc. Creatinine Clearance 74 mL/min (70-130); Carbon Dioxide 20 mmol/L (23-31); Chloride 112 mmol/L (98-107); Potassium 3.7 mmol/L (3.5-5.1); Sodium 140 mmol/L (136-145)
[2022-12-31 05:33] LABS: Calcium 9.5 mg/dL (7.8-10.44); Estimated GFR 92; Glucose 104 mg/dL (83-110)
[2022-12-31] MEDS ORDERED: Dextrose 5%-Lactated Ringers 1,000 ML IV SCH (08:45)
[2022-12-31 11:29] LABS: Vancomycin, Trough 12.4 ug/mL
[2022-12-31 12:06] VITALS: BP 102/66; TEMP 97.4
[2022-12-31] MEDS ORDERED: Vancomycin 1 GM in Premix Bag 1 BAG IVPB SCH (13:00)
[2022-12-31] MEDS: Vancomycin HCl 750 MG in Sodium Chloride 0.9% 250 ML 250 ML IVPB SCH (13:16)
[2023-01-02 12:22] LABS: Actual Bicarbonate (HCO3v) 12 mEq/L (22-28)
== END 2022-12-31 16:55 | disposition hospice, inpatient (51) | DRG 871 ==
LOC: ERS 10:34 → SUATTDRO 10:34 → T4-B 16:39
PROVIDERS: ADMIT Family Medicine; ATTEND Internal Medicine
DX: A41.51 Sepsis due to Escherichia coli [E. coli] (principal); G93.41 Metabolic encephalopathy; L89.153 Pressure ulcer of sacral region, stage 3; L89.303 Pressure ulcer of unspecified buttock, stage 3; C34.90 Malignant neoplasm of unspecified part of unspecified bronchus or lung; N39.0 Urinary tract infection, site not specified; I69.354 Hemiplegia and hemiparesis following cerebral infarction affecting left non-dominant side; Z66 Do not resuscitate; Z20.822 Contact with and (suspected) exposure to COVID-19; Z79.51 Long term (current) use of inhaled steroids; Z79.899 Other long term (current) drug therapy; Z90.49 Acquired absence of other specified parts of digestive tract; Z87.891 Personal history of nicotine dependence
CPT/HCPCS: 70450; 71250; 74177; 80048; 80053; 80076; 80202; 81003; 81015; 82805; 83036; 83605; 83690; 83735; 84443; 84484; 85025; 85027; 85610; 85730; 86850; 86900; 86901; 87040; 87070; 87077; 87081; 87086; 87186; 87205; 93005; 94760; 97139; J2185; J2272; J3010; J3370; J3370-JW; J3490; J7050; J7120; U0003; U0005

== ENCOUNTER 2022-12-31 17:04 | Inpatient (IN) | payer OTHER ==
[2022-12-31] MEDS ORDERED: Bisacodyl 10 MG SUPP PR PRN (17:37)
[2022-12-31] MEDS ORDERED: Glycopyrrolate 0.2 MG/ML 5 ML SYRINGE SLOW IVP PRN (17:37)
[2022-12-31] MEDS ORDERED: Acetaminophen 650 MG Suppository PR PRN (17:45)
[2022-12-31] MEDS ORDERED: Lorazepam 2 MG/ML VIAL SLOW IVP PRN (17:45)
[2022-12-31] MEDS ORDERED: Haloperidol Lactate 5 MG/ML VIAL SLOW IVP PRN (17:45)
[2022-12-31] MEDS ORDERED: Ondansetron PF 4 MG/2 ML Vial IVP PRN (17:45)
[2022-12-31] MEDS ORDERED: Scopolamine 1.5 mg/72 hour Patch TOP PRN (17:45)
[2022-12-31] MEDS: Morphine 4 MG/ML VIAL SLOW IVP PRN ×2 (18:30→21:52)
[2023-01-01] MEDS: Morphine 4 MG/ML VIAL SLOW IVP PRN ×6 (04:33→23:26)
[2023-01-02] MEDS: Morphine 4 MG/ML VIAL SLOW IVP PRN ×6 (05:54→21:36)
[2023-01-03] MEDS: Morphine 4 MG/ML VIAL SLOW IVP PRN ×4 (02:46→13:08)
[2023-01-04] MEDS: Morphine 4 MG/ML VIAL SLOW IVP PRN ×3 (01:37→08:16)
[2023-01-04 07:07] VITALS: BP 105/72; TEMP 98.5
== END 2023-01-04 12:43 | disposition hospice, home (50) | DRG 951 ==
LOC: T4-B 17:04
PROVIDERS: ADMIT Family Medicine; ATTEND Family Medicine
DX: Z51.5 Encounter for palliative care (principal); Z66 Do not resuscitate; C34.90 Malignant neoplasm of unspecified part of unspecified bronchus or lung; N39.0 Urinary tract infection, site not specified; I95.9 Hypotension, unspecified; K59.00 Constipation, unspecified; D64.9 Anemia, unspecified; I67.9 Cerebrovascular disease, unspecified; Z87.440 Personal history of urinary (tract) infections; Z86.73 Personal history of transient ischemic attack (TIA), and cerebral infarction without residual deficits; Z79.899 Other long term (current) drug therapy
CPT/HCPCS: 94760; J1642; J2270